=== PATIENT | female | born 1970 | race Caucasian/White ===

== ENCOUNTER 2020-01-21 09:18 | Outpatient (REF) | payer OTHER, SELFPAY ==
--- NOTE | 2020-01-21 09:25 | CT_ITS ---
EXAMINATION: CT HEAD WITHOUT CONTRAST CLINICAL INFORMATION: Headache. COMPARISON: None TECHNIQUE: Contiguous axial imaging was performed from the skull base to vertex without intravenous administration of contrast. This CT examination was performed using dose optimization techniques as appropriate, variously including the following: *Automated exposure control *Adjustment of mA and/or kV according to patient size (this includes techniques or standardized protocols for targeted exams where dose is matched to indication/reason for exam; i.e. extremities or head) *Use of iterative reconstruction technique DLP: 738 mGy-cm FINDINGS: There is no evidence of acute intracranial hemorrhage or territorial infarction. No abnormal mass effect or midline shift is seen. Duck[place] to white matter differentiation is well preserved. No extra-axial fluid collections are identified. The ventricles are normal in size. There is no abnormal attenuation within the brain parenchyma. The osseous structures and soft tissues are normal. The mastoid air cells and visualized portions of the paranasal sinuses are well aerated. IMPRESSION: No acute intracranial process seen.
== END 2020-01-21 09:19 | disposition home or self-care (01) ==
LOC: HO.CT 09:18
PROVIDERS: Visit Provider Psychiatry & Neurology Neurology
DX: R51.9 Headache, unspecified (principal)
CPT/HCPCS: 70450

== ENCOUNTER 2020-03-24 12:57 | Inpatient (IN) | payer OTHER, SELFPAY ==
[2020-03-24 13:10] VITALS: BP 128/91; PULSE 68; RESP 16; TEMP 37.2; O2SAT 97; BMI 39.1
[2020-03-24 14:54] LABS: MANUAL DIFF FLAG NO
[2020-03-24 15:03] LABS: Basophils Percent Auto 0.3 % (0-2); Eosinophils Absolute Auto 0.1 X10*3/uL (0.0-0.4); Eosinophils Percent Auto 1.2 % (0-4); Imm Gran Abs Auto 0.03 X10*3/uL (0.00-0.03); Imm Gran Pct Auto 0.4 % (0.0-0.4); Lymphocytes Absolute Auto 1.4 X10*3/uL (1.2-4.9); Mean Corpuscular HGB Conc 32.3 g/dl (31.0-35.0); Mean Corpuscular Hemoglobin 29.2 pg (27.0-33.0); Mean Corpuscular Volume 90.4 fL (80-98); Monocytes Absolute Auto 0.6 X10*3/uL (0.1-1.2); Monocytes Percent Auto 7.4 % (2-11); Neutrophils Absolute Auto 5.6 X10*3/uL (2.0-8.3); Neutrophils Percent Auto 72.7 % (45-73); Platelet Count 96 X10*3/uL (160-400); Red Blood Count 3.43 X10*6/uL (4.20-5.50); Red Cell Distribution Width 23.5 % (11.0-16.0); White Blood Count 7.7 X10*3/uL (4.8-10.8)
--- NOTE | 2020-03-24 15:09 | ED_ITS ---
HPI - Nausea/Vomiting/Diarrhea General Chief complaint: Nausea/Vomiting/Diarrhea Stated complaint: numbness and tingling Time Seen by Provider: 03/24/20 14:16 Source: patient Mode of arrival: ambulatory Limitations: no limitations History of Present Illness HPI Narrative: 49 y/o female with history of gastric bypass, small bowel resection resulting in short gut syndrome, hx recent C diff with significant metabolic derangements requiring ICU level of care at [facility] in December presents with watery, yellow diarrhea for the last 3 days along with tingling in all of her extremities. She feels that it is similar to her last presentation but not as severe as last time. No fever, chills. Vomiting yesterday but not today. She completed course of PO Vanco upon d/c. No recent oral antibiotic use. Reports mild diffuse abdominal pain. MD elicited complaint: diarrhea Pertinent past history: other (C diff) Onset (ago): day(s) (3) Description of vomiting: food contents Description of diarrhea: mucus, watery and loose Associated nausea: Yes Associated abdominal pain: Yes Location of pain: diffuse Pain consistency: intermittent Severity: moderate Quality: cramping Exacerbating factors: none Relieving factors: none Associated symptoms: loss of appetite, nausea/vomiting, weakness and numbness Related Data Previous Rx's Medication Instructions Recorded metoprolol tartrate 25 mg tablet 12.5 mg PO BID #60 tab 02/23/20 calcium carbonate 200 mg calcium 200 mg PO BID #30 tab 03/08/20 (500 mg) chewable tablet Allergies Allergy/AdvReac Type Severity Reaction Status Date / Time Flexeril Allergy Unknown anxious Verified 03/24/20 13:13 Latex Allergy Unknown skin Verified 03/24/20 13:13 bubbles prednisone [PREDNISONE] Allergy Unknown Angioedema Verified 03/24/20 13:13 Review of Systems Review of Systems: Constitutional: No Fever, No Chills ENT/Mouth: No sore throat, No Rhinorrhea, No Swallowing Difficulty Eyes: No Eye Pain, No Swelling, No Redness Cardiovascular: No Chest Pain, No SOB, No Orthopnea, No Edema Respiratory: No Cough, No Sputum, No Wheezing, No dyspnea Gastrointestinal: + Nausea, + Vomiting, + Diarrhea, + abdominal Pain, No Hematochezia, No Melena Genitourinary: No Dysuria, No Urinary Frequency, No Hematuria Musculoskeletal: No joint pain, + Myalgias Skin: No Skin Lesions, No rash Neuro: + Weakness, + Numbness, No Dizziness, No Headache Psych: No Anxiety/Panic, No Depression Heme/Lymph: No Bruising, No Lymphadenopathy Endocrine: No Polyuria, No Polydipsia Gastrointestinal: Gastrointestinal: Reports nausea PMFSH Past Medical History Attestation statement: The following information was validated with the patient. Medical History Adrenal gland disease Anxiety and depression Asthma Clostridioides difficile diarrhea Foreign body Heart murmur Hypertension Knee pain Narcolepsy Ventral hernia Surgical History History of intestinal surgery Family History Family History (Updated 03/03/20 @ 11:24 by Mariel White RMMiguel, [employer]) Father Unknown family medical history Mother Emphysema, unspecified Son No problems noted. Social History Social History Alcohol intake: current Alcohol intake frequency: holidays/special occasions only Alcohol type: wine Smoking Status: Never smoker Smoked in Last 30 Days: No Use of substances other than those prescribed or required for medical reasons: No Advance Directives: No Advance Directives Information Provided: No Physical Exam Vital Signs: Vital Signs: Last Vital Signs Temp 98.9 F 03/24/20 15:16 Pulse 72 03/24/20 15:16 Resp 16 03/24/20 15:16 BP 130/90 H 03/24/20 15:16 Pulse Ox 97 03/24/20 15:16 Body Mass Index 39.1 Appearance: Alert. Oriented X3. No acute distress. Eyes: Pupils equal, round and reactive to light. ENT: Pharynx normal. Neck: Normal inspection. Neck supple. CVS: Normal heart rate and rhythm. Pulses normal. Respiratory: No respiratory distress. Breath sounds normal. Abdomen: Obese, Soft with mild idffuse tenderness. +BS x4 Skin: Skin warm and dry. Normal skin color. Normal skin turgor. Erythematous flakey rash around umbilicus Extremities: No lower extremity edema. Neuro: Oriented X 3. No motor deficit. No sensory deficit. Course Course Course Narrative: 49 y/o with history of C. diff presenting with foul smelling diarrhea and tingling. Concern for electrolyte derrangements and dehydration. Will give IVF, check lytes, EKG and C diff PCR. Reevaluation(s) Reevaluation #1: 3:45 pm - Critically low potassium 1.9 and low mag 1.3. Aggressive oral and IV replacements ordered. EKG still pending. Will require hundreds of mEq's of KCl and admisison to the hospital. Reevaluation #2: 16:11 - TT hospitalist about admission, he is recommending PO/IV replacement with repeat chemistry in 1 hour then will admit. Poor IV access at this time. US being attempted at this time. MDM - Nausea/Vomiting/Diarrhea Differential Diagnosis Differential diagnosis: Likely traveler's diarrhea, food poisoning, gastroenteritis, clostridium difficile infection, drug-induced nausea and vomiting and dehydration Lab Data Attestation: I reviewed the patient's lab results. Result diagrams: 03/24/20 14:42 03/24/20 14:42 Labs: Lab Results 03/24/20 03/24/20 03/24/20 Range/Units 14:42 14:42 14:42 WBC 7.7 (4.8-10.8) X10*3/uL RBC 3.43 L (4.20-5.50) X10*6/uL Hgb 10.0 L (12.0-16.0) g/dl Hct 31.0 L (37-47) % MCV 90.4 (80-98) fL MCH 29.2 (27.0-33.0) pg MCHC 32.3 (31.0-35.0) g/dl RDW 23.5 H (11.0-16.0) % Plt Count 96 L (160-400) X10*3/uL MPV 11.0 (9.4-12.3) fL Immature Gran % (Auto) 0.4 (0.0-0.4) % Neut % (Auto) 72.7 (45-73) % Lymph % (Auto) 18.0 L (20-40) % [place] % (Auto) 7.4 (2-11) % Eos % (Auto) 1.2 (0-4) % Baso % (Auto) 0.3 (0-2) % Lymph # (Auto) 1.4 (1.2-4.9) X10*3/uL [place] # (Auto) 0.6 (0.1-1.2) X10*3/uL Eos # (Auto) 0.1 (0.0-0.4) X10*3/uL Baso # (Auto) 0.0 (0.0-0.2) X10*3/uL Abs Immat Gran (auto) 0.03 (0.00-0.03) X10*3/uL Absolute Neuts (auto) 5.6 (2.0-8.3) X10*3/uL Absolute Nucleated RBC 0.000 (0.0-0.012) X10*3/uL Nucleated RBC % (auto) 0.0 (0.0-0.2) /100WBC Sodium 141 (135-145) mmol/L Potassium 1.9 L* (3.3-5.1) mmol/l Chloride 93 L (96-108) mmol/L Carbon Dioxide 38 H (22-29) mmol/L Anion Gap 12 (12-20) BUN 4 L (9-16) mg/dL Creatinine 0.63 (0.5-1.4) mg/dL Estim Creat Clear Calc 137.3 Estimated GFR > 60 Random Glucose 98 (60-115) mg/dL Lactic Acid 1.3 (0.5-2.0) mmol/L Calcium 6.7 L (8.4-10.2) mg/dL Magnesium 1.3 L* (1.6-2.6) mg/dL Total Bilirubin 0.7 (0.0-1.0) mg/dL Direct Bilirubin 0.5 (0.0-0.5) mg/dL AST 48 H (5-31) U/L ALT 20 (0-31) U/L Alkaline Phosphatase 132 H (39-117) U/L Total Protein 5.8 L (6.5-8.0) g/dL Albumin 2.8 L (3.5-5.0) g/dL Coronavirus (PCR) (Negative) Influenza Type A (PCR) (Negative) Influenza Type B (PCR) (Negative) RSV RNA Qual (PCR) (Negative) 03/24/20 03/24/20 Range/Units 14:42 14:42 WBC (4.8-10.8) X10*3/uL RBC (4.20-5.50) X10*6/uL Hgb (12.0-16.0) g/dl Hct (37-47) % MCV (80-98) fL MCH (27.0-33.0) pg MCHC (31.0-35.0) g/dl RDW (11.0-16.0) % Plt Count (160-400) X10*3/uL MPV (9.4-12.3) fL Immature Gran % (Auto) (0.0-0.4) % Neut % (Auto) (45-73) % Lymph % (Auto) (20-40) % [place] % (Auto) (2-11) % Eos % (Auto) (0-4) % Baso % (Auto) (0-2) % Lymph # (Auto) (1.2-4.9) X10*3/uL [place] # (Auto) (0.1-1.2) X10*3/uL Eos # (Auto) (0.0-0.4) X10*3/uL Baso # (Auto) (0.0-0.2) X10*3/uL Abs Immat Gran (auto) (0.00-0.03) X10*3/uL Absolute Neuts (auto) (2.0-8.3) X10*3/uL Absolute Nucleated RBC (0.0-0.012) X10*3/uL Nucleated RBC % (auto) (0.0-0.2) /100WBC Sodium (135-145) mmol/L Potassium (3.3-5.1) mmol/l Chloride (96-108) mmol/L Carbon Dioxide (22-29) mmol/L Anion Gap (12-20) BUN (9-16) mg/dL Creatinine (0.5-1.4) mg/dL Estim Creat Clear Calc Estimated GFR Random Glucose (60-115) mg/dL Lactic Acid (0.5-2.0) mmol/L Calcium Cancelled (8.4-10.2) mg/dL Magnesium (1.6-2.6) mg/dL Total Bilirubin (0.0-1.0) mg/dL Direct Bilirubin (0.0-0.5) mg/dL AST (5-31) U/L ALT (0-31) U/L Alkaline Phosphatase (39-117) U/L Total Protein (6.5-8.0) g/dL Albumin (3.5-5.0) g/dL Coronavirus (PCR) NEGATIVE (Negative) Influenza Type A (PCR) NEGATIVE (Negative) Influenza Type B (PCR) NEGATIVE (Negative) RSV RNA Qual (PCR) NEGATIVE (Negative) ECG Data Attestation: I personally reviewed and interpreted this ECG as follows: ECG interpretation date: 03/24/20 ECG interpretation time: 16:25 Interpretation: normal sinus rhythm, HR 70 bpm, prolonged QTc 533 ms, normal NV interval, no U waves appreciated Critical Care Time Critical Care Time Critical Care Time: Yes Total Critical Care Time: 35 Attestation: I attest to this time being spent with this patient reviewing labs and history, having a critically low potassium. Requiring continuous hemodynamic monitoring and frequent bedside reassessments. Discharge Plan Discharge Clinical Impression: Acute hypokalemia, Hypomagnesemia Diarrhea Qualifiers: Diarrhea type: presumed infectious Qualified Code(s): R19.7 - Diarrhea, unspecified Patient Disposition: Admitted As Inpatient
[2020-03-24] MEDS: 0.9 % Sodium Chloride 1,000 ML 999 ML IVCONT (15:12)
[2020-03-24 15:16] VITALS: BP 130/90; PULSE 72; RESP 16; TEMP 37.2; O2SAT 97
[2020-03-24 15:20] LABS: Lactic Acid 1.3 mmol/L (0.5-2.0)
[2020-03-24 15:47] LABS: Alanine Aminotransferase 20 U/L (0-31); Albumin Level 2.8 g/dL (3.5-5.0); Alkaline Phosphatase 132 U/L (39-117); Anion Gap 12 (12-20); Aspartate Amino Transferase 48 U/L (5-31); Bilirubin Direct 0.5 mg/dL (0.0-0.5); Bilirubin Total 0.7 mg/dL (0.0-1.0); Blood Urea Nitrogen 4 mg/dL (9-16); Calcium 6.7 mg/dL (8.4-10.2); Carbon Dioxide 38 mmol/L (22-29); Chloride 93 mmol/L (96-108); Creatinine Clr Calc Pharmacy 137.3; Estimated Glomerular Filt Rate > 60; Glucose Random 98 mg/dL (60-115); Potassium 1.9 mmol/l (3.3-5.1); Sodium 141 mmol/L (135-145); Total Protein 5.8 g/dL (6.5-8.0)
[2020-03-24 15:48] LABS: Magnesium 1.3 mg/dL (1.6-2.6)
--- NOTE | 2020-03-24 15:49 | ECG_ITS ---
Test Reason : DIZZ Blood Pressure : / mmHG Vent. Rate : 070 BPM Atrial Rate : 070 BPM P-R Int : 142 ms QRS Dur : 092 ms QT Int : 494 ms P-R-T Axes : 055 050 075 degrees QTc Int : 533 ms Normal sinus rhythm ST & T wave abnormality, consider anterior ischemia Abnormal ECG When compared with ECG of 01-NOV-2016 11:57, ST now depressed in Anterior leads Nonspecific T wave abnormality now evident in Inferior leads T wave inversion now evident in Anterior leads QT has lengthened Referred By: Samantha Roblero Electronically Signed By:JEANINE GARCÍA MD
[2020-03-24 15:54] LABS: Influenza A PCR NEGATIVE (Negative); Influenza B PCR NEGATIVE (Negative); Resp Syncy Virus RNA Qual PCR NEGATIVE (Negative); SARS COV2 PCR INHOUSE NEGATIVE (Negative)
[2020-03-24] MEDS: KCl 40 mEq in 0.9 % Sodium Chl 40 MEQ/1,000 ML IV.SOLN 250 MEQ IVCONT (16:07)
[2020-03-24] MEDS: Potassium Chloride ER 20 MEQ TAB.ER.PRT 60 MEQ PO ×2 (16:08→23:25)
[2020-03-24 17:07] VITALS: BP 158/86; PULSE 73; RESP 16; O2SAT 99
--- NOTE | 2020-03-24 18:15 | PC.NURSE ---
pt has IV established in left AC, potassium running. She needs second IV for Magnesium, multiple attempts with no sucess. Awaiting provider to insert EJ
[2020-03-24 18:17] LABS: INTERNATIONAL NORM RATIO 1.1 (0.9-1.1); Prothrombin Time 12.5 SEC (10.8-13.0)
[2020-03-24 18:28] LABS: Blood Urea Nitrogen 4 mg/dL (9-16); Creatinine Clr Calc Pharmacy 146.5; Estimated Glomerular Filt Rate > 60; Glucose Random 86 mg/dL (60-115)
--- NOTE | 2020-03-24 18:32 | P.HPHOSP_ITS ---
History of Present Illness Date of Service: 03/24/20 Chief Complaint: Vomiting, diarrhea, numbness and weakness A 49 years old lady with PMH X of gastric bypass, small-bowel resection, recent C diff colitis, HTN, adrenal gland problem among others who presents to the hospital with complaint of weakness and numbness in her extremities after having episodes of nausea and vomiting for the last 3 days. The patient was recently admitted to [facility] with C diff colitis requiring ICU admission. The patient has recovered and has been around her normal self for the last 3 weeks and to the last 3 days when she felt nauseated and started to vomit 4 to 5 times a day along with diarrhea of watery 4 to 5 times a day with no abdominal pain, fever, chills or urinary symptoms. Today she decided to come to the hospital as the weakness and numbness gets worse. In the emergency she was found to have significantly low potassium and magnesium. Admitted for further evaluation and treatment. Review of Systems Review of Systems: No fever, chills , reports significant weakness No chest pain, palpitation No shortness of breath or coughing No abdominal pain, reporting vomiting and diarrhea up to 4 times a day No urinary symptoms No any rash or wounds PMFSH Medical History Adrenal gland disease Anxiety and depression Asthma Clostridioides difficile diarrhea Foreign body Heart murmur Hypertension Knee pain Narcolepsy Ventral hernia Family History Father Unknown family medical history Mother Emphysema, unspecified Son No problems noted. Surgical History History of intestinal surgery Social History Household Members: Significant Other and Friend(s) Housing: Condominium Do you presently have visiting nurse or other home services: No Alcohol intake: current Alcohol intake frequency: holidays/special occasions only Alcohol type: wine Smoking Status: Never smoker Smoked in Last 30 Days: No Use of substances other than those prescribed or required for medical reasons: No Currently Displaying Signs/Symptoms of Drug Intoxication Withdrawal: No Advance Directives: No Advance Directives Information Provided: No Do you have thoughts of harming others: None Do you have a plan to hurt others: No Plan Recently lost weight without trying: No service: No Current occupational status: disabled Meds Allergies Allergy/AdvReac Type Severity Reaction Status Date / Time Flexeril Allergy Unknown anxious Verified 03/24/20 13:13 Latex Allergy Unknown skin Verified 03/24/20 13:13 bubbles prednisone [PREDNISONE] Allergy Unknown Angioedema Verified 03/24/20 13:13 Home Medications Medication Instructions Recorded Confirmed Type acyclovir 200 mg PO TID PRN 03/24/20 03/24/20 History bupropion HCl 150 mg PO QAM 03/24/20 03/24/20 History bupropion HCl 300 mg PO QAM 03/24/20 03/24/20 History clonidine HCl 0.1 mg PO TID PRN 03/24/20 03/24/20 History ergocalciferol (vitamin D2) 1,250 mcg PO MO@0900 03/24/20 03/24/20 History [Vitamin D2] hydroxyzine HCl 50 mg PO TID PRN 03/24/20 03/24/20 History lurasidone [Latuda] 60 mg PO DAILY 03/24/20 03/24/20 History ondansetron 4 mg PO DAILY PRN 03/24/20 03/24/20 History venlafaxine 75 mg PO DAILY 03/24/20 03/24/20 History venlafaxine 150 mg PO DAILY 03/24/20 03/24/20 History Physical Exam Vital Signs and Narrative: Vital Signs: Last Vital Signs Temp 98.9 F 03/24/20 15:16 Pulse 73 03/24/20 17:07 Resp 16 03/24/20 17:07 BP 158/86 H 03/24/20 17:07 Pulse Ox 99 03/24/20 17:07 Body Mass Index 39.1 Constitutional : Alert, oriented, not in distress Neck : Normal inspection, Supple Cardiovascular : RRR, S1 S2, no lower extremity edema Respiratory : Good bilateral air entry, no crackles, wheezes or rhonchi Gastrointestinal: soft, lax, Normal bowel sounds, Non tender Skin : Warm/Dry, No rash Neurological : Alert & oriented x3, No focal deficit Results Labs CBC and Chem 7: 03/25/20 05:33 03/25/20 05:32 Labs: Laboratory Results - last 24 hr 03/24/20 03/24/20 03/24/20 14:42 14:42 14:42 MCV 90.4 MCH 29.2 MCHC 32.3 RDW 23.5 H Plt Count 96 L MPV 11.0 Immature Gran % (Auto) 0.4 Neut % (Auto) 72.7 Lymph % (Auto) 18.0 L [place] % (Auto) 7.4 Eos % (Auto) 1.2 Baso % (Auto) 0.3 Lymph # (Auto) 1.4 [place] # (Auto) 0.6 Eos # (Auto) 0.1 Baso # (Auto) 0.0 Abs Immat Gran (auto) 0.03 Absolute Neuts (auto) 5.6 Absolute Nucleated RBC 0.000 Nucleated RBC % (auto) 0.0 Hold Blue Top Anion Gap 12 Estim Creat Clear Calc 137.3 Estimated GFR > 60 Random Glucose 98 Lactic Acid 1.3 Calcium 6.7 L Magnesium 1.3 L* Total Bilirubin 0.7 Direct Bilirubin 0.5 AST 48 H ALT 20 Alkaline Phosphatase 132 H Total Protein 5.8 L Albumin 2.8 L Coronavirus (PCR) Influenza Type A (PCR) Influenza Type B (PCR) RSV RNA Qual (PCR) 03/24/20 03/24/20 03/24/20 14:42 14:42 17:56 MCV MCH MCHC RDW Plt Count MPV Immature Gran % (Auto) Neut % (Auto) Lymph % (Auto) [place] % (Auto) Eos % (Auto) Baso % (Auto) Lymph # (Auto) [place] # (Auto) Eos # (Auto) Baso # (Auto) Abs Immat Gran (auto) Absolute Neuts (auto) Absolute Nucleated RBC Nucleated RBC % (auto) Hold Blue Top SEE NOTE Anion Gap Estim Creat Clear Calc Estimated GFR Random Glucose Lactic Acid Calcium Cancelled Magnesium Total Bilirubin Direct Bilirubin AST ALT Alkaline Phosphatase Total Protein Albumin Coronavirus (PCR) NEGATIVE Influenza Type A (PCR) NEGATIVE Influenza Type B (PCR) NEGATIVE RSV RNA Qual (PCR) NEGATIVE 03/24/20 17:56 MCV MCH MCHC RDW Plt Count MPV Immature Gran % (Auto) Neut % (Auto) Lymph % (Auto) [place] % (Auto) Eos % (Auto) Baso % (Auto) Lymph # (Auto) [place] # (Auto) Eos # (Auto) Baso # (Auto) Abs Immat Gran (auto) Absolute Neuts (auto) Absolute Nucleated RBC Nucleated RBC % (auto) Hold Blue Top Anion Gap Estim Creat Clear Calc 146.5 Estimated GFR > 60 Random Glucose 86 Lactic Acid Calcium Magnesium Total Bilirubin Direct Bilirubin AST ALT Alkaline Phosphatase Total Protein Albumin Coronavirus (PCR) Influenza Type A (PCR) Influenza Type B (PCR) RSV RNA Qual (PCR) Assessment and Plan (1) Numbness and tingling: Status: Acute (2) Acute hypokalemia: Status: Acute (3) Diarrhea: Qualifiers: Diarrhea type: presumed infectious Qualified Code(s): R19.7 - Diarrhea, unspecified Status: Acute (4) Hypomagnesemia: Status: Acute (5) Generalized weakness: Status: Acute A 49 years old lady with PMH X of gastric bypass, small-bowel resection, recent C diff colitis, HTN, adrenal gland problem among others who presents to the hospital with complaint of weakness and numbness in her extremities after having episodes of nausea and vomiting for the last 3 days. Generalized weakness Likely secondary to dehydration and electrolyte imbalance To correct potassium and magnesium Hypokalemia Potassium of 1.9 associated with symptoms Receiving replacement in the emergency, pending repeat labs Continue to give potassium supplement for now To check cortisol level, given history of adrenal disease this could be presentation of it Hypomagnesemia Like secondary to diarrhea and vomiting Replacement given the emergency Mild protein malnutrition Likely secondary to short gut syndrome To give supplement with food Acute on chronic anemia Blood level dropped to 10 from baseline of 12 No clear bleeding noticed The to check occult blood she might need further workup as outpatient DVT PPX SCDs for now
[2020-03-24] MEDS: LORazepam 1 MG TABLET PO (18:37)
[2020-03-24 18:44] LABS: Anion Gap 11 (12-20); Calcium 6.3 mg/dL (8.4-10.2); Carbon Dioxide 37 mmol/L (22-29); Chloride 97 mmol/L (96-108); Potassium 2.3 mmol/l (3.3-5.1); Sodium 143 mmol/L (135-145)
[2020-03-24] MEDS: Magnesium Sulfate/H2O 2 GM/50 ML PIGGYBACK IV ×2 (19:01→20:47)
[2020-03-24 20:00] VITALS: BP 144/80; PULSE 88; RESP 18; TEMP 36.6; O2SAT 94
[2020-03-24] MEDS: Potassium Chloride ER 20 MEQ TAB.ER.PRT 40 MEQ PO (20:47)
[2020-03-24 21:41] LABS: Glucose Urine UA NEG (NEG); Leukocyte Esterase Urine 2+ (NEG); Nitrite Urine NEG (NEG); PH 6.5 (5.0-8.0); Specific Gravity - Urine 1.015 (1.005-1.025); Urine Blood NEG (NEG); Urine Ketones NEG (NEG); Urine Protein NEG (NEG-TRACE)
[2020-03-24 21:47] LABS: OBS Int Ctl Valid YES; OBS1 NEG (NEG)
[2020-03-24 21:50] LABS: Appearance Urine CLEAR; Color Urine YELLOW
[2020-03-24 22:08] LABS: Amphetamine Screen Urine Not Detected (Not Detect); Barbiturates, Urine Not Detected (Not Detect); Benzodiazepines Screen Urine Not Detected (Not Detect); Cannabinoid Screen Urine Not Detected (Not Detect); Cocaine Screen Urine Not Detected (Not Detect); Opiate Screen Urine Not Detected (Not Detect); Phencyclidine Screen Urine Not Detected (Not Detect)
[2020-03-24 22:52] LABS: Bacteria Urine 2+ /LPF; Squamous Epithelial Cell Urine 1+ /LPF
[2020-03-24 23:10] LABS: CDIFF Ag Negative (Negative)
[2020-03-24 23:11] LABS: CDIFF Internal ctrl Dots and bkg OK (V); CDiff Toxin Negative (Negative)
[2020-03-25] VITALS (9 sets, daily range): BP systolic 123–158; BP diastolic 78–102; PULSE 69–81; RESP 16–19; TEMP 36.1–37.1; O2SAT 94–99
[2020-03-25 06:19] LABS: MANUAL DIFF FLAG NO
[2020-03-25 06:24] LABS: Basophils Percent Auto 0.4 % (0-2); Eosinophils Absolute Auto 0.1 X10*3/uL (0.0-0.4); Eosinophils Percent Auto 1.4 % (0-4); Hematocrit 29.1 % (37-47); Hemoglobin 9.1 g/dl (12.0-16.0); Imm Gran Abs Auto 0.01 X10*3/uL (0.00-0.03); Imm Gran Pct Auto 0.2 % (0.0-0.4); Lymphocytes Absolute Auto 1.1 X10*3/uL (1.2-4.9); Lymphocytes Percent Auto 20.6 % (20-40); Mean Corpuscular HGB Conc 31.3 g/dl (31.0-35.0); Mean Corpuscular Hemoglobin 28.5 pg (27.0-33.0); Mean Corpuscular Volume 91.2 fL (80-98); Mean Platelet Volume 10.9 fL (9.4-12.3); Monocytes Absolute Auto 0.5 X10*3/uL (0.1-1.2); Neutrophils Absolute Auto 3.8 X10*3/uL (2.0-8.3); Neutrophils Percent Auto 68.4 % (45-73); Platelet Count 82 X10*3/uL (160-400); Red Blood Count 3.19 X10*6/uL (4.20-5.50); Red Cell Distribution Width 23.4 % (11.0-16.0); White Blood Count 5.5 X10*3/uL (4.8-10.8)
[2020-03-25 07:33] LABS: Anion Gap 11 (12-20); Blood Urea Nitrogen 3 mg/dL (9-16); Calcium 6.4 mg/dL (8.4-10.2); Carbon Dioxide 32 mmol/L (22-29); Chloride 99 mmol/L (96-108); Creatinine Clr Calc Pharmacy 163.1; Estimated Glomerular Filt Rate > 60; Glucose Random 89 mg/dL (60-115); Potassium 2.4 mmol/l (3.3-5.1); Sodium 140 mmol/L (135-145)
[2020-03-25] MEDS: buPROPion HCl XL 300 MG TAB.ER.24H PO (09:38)
[2020-03-25] MEDS: Venlafaxine HCl ER 75 MG CAP.ER.24H PO (09:38)
[2020-03-25] MEDS: cloNIDine HCL 0.1 MG TABLET PO ×3 (09:38→22:25)
[2020-03-25] MEDS: Venlafaxine HCl ER 150 MG CAP.ER.24H PO (09:38)
[2020-03-25] MEDS: Metoprolol Tartrate 25 MG TABLET 12.5 MG PO ×2 (09:38→22:23)
[2020-03-25] MEDS: hydrOXYzine HCL 50 MG TABLET PO ×3 (09:38→22:24)
[2020-03-25] MEDS: buPROPion HCl XL 150 MG TAB.ER.24H PO (09:38)
[2020-03-25] MEDS: 0.9 % Sodium Chloride Flush 3 ML SYRINGE IVFLUSH ×2 (09:39→16:25)
[2020-03-25] MEDS: Potassium Chloride/H20 10 MEQ/100 ML PIGGYBACK 100 MEQ IV ×4 (09:39→13:57)
--- NOTE | 2020-03-25 09:52 | P.CNHO_ITS ---
Subjective - Subjective Chief complaint: Lower extremity weakness and numbness Consult date: 03/25/20 Requesting Physician: Dr. Solis Primary Care Provider: Chantale Chairez MD HPI - Consult Narrative Reason for consult: Anemia and thrombocytopenia Narrative: Ana Cross is a 49 year old female who has been admitted with symptoms of lower extremity numbness and weakness. She was admitted to [facility] in December with diarrhea and similar complaints of lower extremity weakness and inability to move. At that time she was admitted to the ICU with serious electrolyte disturbances, chiefly hypocalcemia and hypomagnesemia. This was attributed to diarrhea related to C diff colitis. She received and completed course of antibiotics, her diarrhea has since resolved. However in the last few days she developed recurrent symptoms of lower extremity weakness and had a few episodes of nausea and emesis that prompted her to come to the emergency department. She denies any fever or chills. She denies any previous complaints similar to this. She underwent gastric bypass surgery in 2005 at [facility]. A year o r 2 later she developed small bowel obstruction and underwent resection. She was told of anemia in the past related to iron deficiency but she does not recall receiving parenteral iron therapy. She has been taking multivitamin. She does not recall previous blood transfusion. Review of Systems - Constitutional Reports as per HPI, Reports no additional constitutional complaints - Cardiovascular Reports no additional cardiovascular complaints - Respiratory Reports no additional respiratory complaints - Gastrointestinal Reports no additional gastrointestinal complaints Oncology Screenings - ECOG Performance Status ECOG Performance Status: 2 [facility] Medical History: Medical History (Last Reviewed 03/24/20 @ 18:36 by Lorie Solis MD) Adrenal gland disease Anxiety and depression Asthma Clostridioides difficile diarrhea Foreign body Heart murmur Hypertension Knee pain Narcolepsy Ventral hernia Family History: Family History (Last Reviewed 03/24/20 @ 18:36 by Lorie Solis MD) Father Unknown family medical history Mother Emphysema, unspecified Son No problems noted. Surgical History: Surgical History (Last Reviewed 03/24/20 @ 18:36 by Lorie Solis MD) History of intestinal surgery Smoking status: Never smoker Home Medications and Allergies Current Medications: Current Medications Generic Name Dose Route Start Last Admin Trade Name Freq PRN Reason Stop Dose Admin Acetaminophen 650 mg 03/24/20 18:49 Acetaminophen 325 Mg Tablet PO Q6H PRN Pain, Mild (Pain Scale 1-3) Albuterol Sulfate 2 puff 03/25/20 08:51 Albuterol Sulfate 90 Mcg 8 Gm Inhaler INHALE Q4H PRN Shortness Of Breath Bupropion HCl 150 mg 03/25/20 09:00 03/25/20 09:38 Bupropion Hcl Xl 150 Mg Tab.Er.24h PO 150 mg DAILY [facility] Administration Bupropion HCl 300 mg 03/25/20 09:00 03/25/20 09:38 Bupropion Hcl Xl 300 Mg Tab.Er.24h PO 300 mg DAILY [facility] Administration Calcium Carbonate 500 mg 03/25/20 09:00 03/25/20 09:38 Calcium Carbonate 500 Mg Tablet PO 500 mg BID [facility] Administration Clonidine HCl 0.1 mg 03/25/20 09:00 03/25/20 09:38 Clonidine Hcl 0.1 Mg Tablet PO 0.1 mg TID [facility] Administration Protocol Ergocalciferol 1,250 mcg 03/29/20 09:00 Ergocalciferol (Vitamin D2) 1,250 Mcg Capsule PO MO@0900 [facility] Hydroxyzine HCl 50 mg 03/25/20 09:00 03/25/20 09:38 Hydroxyzine Hcl 50 Mg Tablet PO 50 mg TID [facility] Administration Potassium Chloride 10 meq in 100 mls @ 100 mls/hr 03/25/20 09:00 03/25/20 09:39 IV 03/25/20 12:59 100 mls/hr Q1H [facility] Administration Lurasidone HCl 60 mg 03/25/20 09:00 Lurasidone Hcl 20 Mg Tablet PO DAILY [facility] Metoprolol Tartrate 12.5 mg 03/25/20 09:00 03/25/20 09:38 Metoprolol Tartrate 25 Mg Tablet PO 12.5 mg BID [facility] Administration Protocol Ondansetron HCl 4 mg 03/24/20 18:49 Ondansetron Hcl 4 Mg/2 Ml Vial IVPUSH Q8H PRN Nausea and Vomiting Potassium Chloride 60 meq 03/25/20 09:00 03/25/20 09:38 Potassium Chloride Er 10 Meq Capsule.Er PO 03/25/20 21:01 60 meq TID [facility] Administration Sodium Chloride 3 ml 03/25/20 00:00 03/25/20 09:39 0.9 % Sodium Chloride Flush 3 Ml Syringe IVFLUSH 3 ml QSHIFT [facility] Administration Venlafaxine HCl 75 mg 03/25/20 09:00 03/25/20 09:38 Venlafaxine Hcl Er 75 Mg Cap.Er.24h PO 75 mg DAILY [facility] Administration Venlafaxine HCl 150 mg 03/25/20 09:00 03/25/20 09:38 Venlafaxine Hcl Er 150 Mg Cap.Er.24h PO 150 mg DAILY [facility] Administration Home Medications Medication Instructions Recorded Confirmed Type acyclovir 200 mg PO TID PRN 03/24/20 03/24/20 History bupropion HCl 150 mg PO QAM 03/24/20 03/24/20 History bupropion HCl 300 mg PO QAM 03/24/20 03/24/20 History clonidine HCl 0.1 mg PO TID PRN 03/24/20 03/24/20 History ergocalciferol (vitamin D2) 1,250 mcg PO MO@0900 03/24/20 03/24/20 History [Vitamin D2] hydroxyzine HCl 50 mg PO TID PRN 03/24/20 03/24/20 History lurasidone [Latuda] 60 mg PO DAILY 03/24/20 03/24/20 History ondansetron 4 mg PO DAILY PRN 03/24/20 03/24/20 History venlafaxine 75 mg PO DAILY 03/24/20 03/24/20 History venlafaxine 150 mg PO DAILY 03/24/20 03/24/20 History Allergies Allergy/AdvReac Type Severity Reaction Status Date / Time Flexeril Allergy Unknown anxious Verified 03/24/20 13:13 Latex Allergy Unknown skin Verified 03/24/20 13:13 bubbles prednisone [PREDNISONE] Allergy Unknown Angioedema Verified 03/24/20 13:13 Physical Exam Vital signs: Vital Signs Temp 97.6 F 03/25/20 07:10 Pulse 81 03/25/20 07:10 Resp 19 03/25/20 07:10 BP 146/94 H 03/25/20 07:10 Pulse Ox 94 03/25/20 07:10 Intake & Output 03/24/20 03/25/20 03/25/20 18:59 06:59 18:59 Intake Total 999 112 / 2119 100 / 100 Balance 999 [id number] 100 / 100 Intake: Intake, Oral Amount 120 / 120 Intake, IV Amount 1000 / 2000 1000 / 2000 100 / 100 Magnesium Sulfate/H2O 2 gm In 100 / 100 50 ml @ 50 mls/hr IV ONCE ONE Rx#:[id number] 0.9 % Sodium Chloride 1,000 ml 1000 / 1000 @ 999 mls/hr IVCONT .Q1H1M [facility] Rx#:[id number] KCl 40 mEq in 0.9 % Sodium Chl 1000 / 1000 40 meq In 1,000 ml @ 250 mls/hr IVCONT .Q4H [facility] Rx#:[id number] Other: Number of Unmeasured Voids 2 Urine Bathroom Urine Color Yellow Weight 113.398 kg Weight 113.398 kg - Constitutional Present: no acute distress - Routine HEENT Exam Head: Present: normal inspection Eye: Present: EOMI, conjunctivae pale, PERRL - Routine Neck Exam Present: supple. Absent: lymphadenopathy - Routine Respiratory Exam Present: CTAB - Routine Cardiovascular Exam Cardiovascular: Present: RRR, S1, S2 - Routine Abdominal Exam Present: soft Hem/Onc Consult Result - Labs CBC & Chem 7: 03/25/20 05:33 03/25/20 05:32 Labs: Short CBC 03/24/20 03/25/20 Range/Units 14:42 05:33 WBC 7.7 5.5 (4.8-10.8) X10*3/uL Hgb 10.0 L 9.1 L (12.0-16.0) g/dl Hct 31.0 L 29.1 L (37-47) % Plt Count 96 L 82 L (160-400) X10*3/uL BMP 03/24/20 03/24/20 03/24/20 14:42 14:42 17:56 Sodium 141 143 Potassium 1.9 L* 2.3 L* D Chloride 93 L 97 Carbon Dioxide 38 H 37 H BUN 4 L 4 L Creatinine 0.63 0.59 Calcium 6.7 L Cancelled 6.3 L 03/25/20 05:32 Sodium 140 Potassium 2.4 L* Chloride 99 Carbon Dioxide 32 H BUN 3 L Creatinine 0.53 Calcium 6.4 L Liver Function 03/24/20 Range/Units 14:42 Total Bilirubin 0.7 (0.0-1.0) mg/dL Direct Bilirubin 0.5 (0.0-0.5) mg/dL AST 48 H (5-31) U/L ALT 20 (0-31) U/L Alkaline Phosphatase 132 H (39-117) U/L Albumin 2.8 L (3.5-5.0) g/dL Urine 03/24/20 Range/Units 21:28 Urine Color YELLOW Urine Appearance CLEAR Urine pH 6.5 (5.0-8.0) Ur Specific Gepp 1.015 (1.005-1.025) Urine Protein NEG (NEG-TRACE) MG/DL Urine Glucose (UA) NEG (NEG) MG/DL Assessment and Plan (1) Anemia Status: Acute Qualifiers: Anemia type: folate deficiency 1. This is a 49-year-old woman with recurrent symptoms of hypocalcemia/hypokalemia admitted to the hospital with lower extremity weakness. She was noted to have worsening anemia and thrombocytopenia. This is multif actorial. Review of records from [facility] reveals that patient was anemic and thrombocytopenic while stent [facility]. Her hemoglobin was in the same range and platelets were in the low 100s. She has iron deficiency as well as vitamin B12 and folic acid deficiency. Her recent infection and previous gastric bypass surgery would also impair absorption. This no evidence of hemolysis, renal dysfunction or liver dysfunction causing her cytopenias. No coagulopathy to suggest DIC. I would recommend treating her with parenteral iron therapy, Ferrlecit 125 mg IV daily x5. Start vitamin B12 1000 microg intramuscular daily while admitted and then Q monthly. Folic acid 1 mg daily. I thank you for this referral.
[2020-03-25 10:11] LABS: Immature Retic Fraction 25.2 % (3.0-15.9); Retic HGB Equivalent 29.9 pg (30.0-35.0); Reticulocyte Percent 1.2 % (0.5-1.8); Reticulocytes Absolute 0.044 X10*6/uL (0.026-0.095)
[2020-03-25] MEDS: Lurasidone HCl 20 MG TABLET 60 MG PO (10:18)
[2020-03-25 10:25] LABS: Iron 33 mcg/dL (30-160); Lactate Dehydrogenase 279 U/L (122-220); Percent Iron Saturation 11 % (15-50); Total Iron Binding Capacity 309 mcg/dL (228-428); Unsaturated Iron Binding 276 ug/dL
[2020-03-25 10:56] LABS: Folate 3.1 ng/mL (> or = 4.0); Vitamin B12 250 pg/mL (200-900)
--- NOTE | 2020-03-25 13:14 | MHC.CM.PN ---
IMM 03/25/2020 FEMALE 49 DX numbness hypo K n/v. She lives with BF and a friend. She requires assististance from a INSURANCE C[employer]ER ; Which is provided by [facility]. She states that she is steady on her feet, requires no AD. DP is to resume services for INSURANCE CODER thru [facility]. She will arrange for transport at [place]. CM will follow.
--- NOTE | 2020-03-25 15:03 | P.PNIM_ITS ---
Subjective Subjective Date of Service: 03/25/20 Interval History: the patient was seen and evaluated this morning Laying in bed, feels comfortable but reports numbness and generalized weakness Denies any fever, chills or shortness of breath No reported other overnight events. Systemic review: Reports muscle weakness and lethargy No fever, chills or weakness No chest pain, palpitation No shortness of breath or coughing No abdominal pain, nausea or vomiting No urinary symptoms No any rash or wounds Physical Exam Vital Signs: Vital Signs: Last Vital Signs Temp 96.9 F 03/25/20 11:44 Pulse 74 03/25/20 11:44 Resp 18 03/25/20 11:44 BP 123/80 03/25/20 11:44 Pulse Ox 98 03/25/20 11:44 Body Mass Index 39.1 Constitutional : Alert, oriented, not in distress Neck : Normal inspection, Supple Cardiovascular : RRR, S1 S2, no lower extremity edema Respiratory : Good bilateral air entry, no crackles, wheezes or rhonchi Gastrointestinal: soft, lax, Normal bowel sounds, Non tender Skin : Warm/Dry, No rash Neurological : Alert & oriented x3, No focal deficit Objective Data Current Medications Generic Name Dose Route Start Last Admin Trade Name Freq PRN Reason Stop Dose Admin Acetaminophen 650 mg 03/24/20 18:49 Acetaminophen 325 Mg Tablet PO Q6H PRN Pain, Mild (Pain Scale 1-3) Albuterol Sulfate 2 puff 03/25/20 08:51 Albuterol Sulfate 90 Mcg 8 Gm Inhaler INHALE Q4H PRN Shortness Of Breath Bupropion HCl 150 mg 03/25/20 09:00 03/25/20 09:38 Bupropion Hcl Xl 150 Mg Tab.Er.24h PO 150 mg DAILY [facility] Administration Bupropion HCl 300 mg 03/25/20 09:00 03/25/20 09:38 Bupropion Hcl Xl 300 Mg Tab.Er.24h PO 300 mg DAILY [facility] Administration Calcium Carbonate 500 mg 03/25/20 09:00 03/25/20 09:38 Calcium Carbonate 500 Mg Tablet PO 500 mg BID [facility] Administration Clonidine HCl 0.1 mg 03/25/20 09:00 03/25/20 13:58 Clonidine Hcl 0.1 Mg Tablet PO 0.1 mg TID [facility]IHA Administration Protocol Cyanocobalamin 1,000 mcg 03/25/20 15:00 Cyanocobalamin (Vitamin B-12) 1,000 Mcg/Ml Vial IM DAILY [facility] Ergocalciferol 1,250 mcg 03/29/20 09:00 Ergocalciferol (Vitamin D2) 1,250 Mcg Capsule PO MO@0900 [facility] Folic Acid 1 mg 03/25/20 14:55 Folic Acid 1 Mg/0.2 Ml Syringe IVPUSH DAILY [facility] Hydroxyzine HCl 50 mg 03/25/20 09:00 03/25/20 13:58 Hydroxyzine Hcl 50 Mg Tablet PO 50 mg TID [facility] Administration Ferric Sodium Gluconate 110 mls @ 100 mls/hr 03/25/20 15:00 Complex 125 mg/ Sodium IV 03/27/20 10:05 Chloride DAILY [facility] Lurasidone HCl 60 mg 03/25/20 09:00 03/25/20 10:18 Lurasidone Hcl 20 Mg Tablet PO 60 mg DAILY [facility] Administration Magnesium Oxide 400 mg 03/25/20 17:30 Magnesium Oxide 400 Mg Tablet PO BIDPC [facility] Metoprolol Tartrate 12.5 mg 03/25/20 09:00 03/25/20 09:38 Metoprolol Tartrate 25 Mg Tablet PO 12.5 mg BID [facility] Administration Protocol Ondansetron HCl 4 mg 03/24/20 18:49 Ondansetron Hcl 4 Mg/2 Ml Vial IVPUSH Q8H PRN Nausea and Vomiting Potassium Chloride 60 meq 03/25/20 09:00 03/25/20 13:58 Potassium Chloride Er 10 Meq Capsule.Er PO 03/25/20 21:01 60 meq TID [facility] Administration Sodium Chloride 3 ml 03/25/20 00:00 03/25/20 09:39 0.9 % Sodium Chloride Flush 3 Ml Syringe IVFLUSH 3 ml QSHIFT [facility] Administration Venlafaxine HCl 75 mg 03/25/20 09:00 03/25/20 09:38 Venlafaxine Hcl Er 75 Mg Cap.Er.24h PO 75 mg DAILY [facility] Administration Venlafaxine HCl 150 mg 03/25/20 09:00 03/25/20 09:38 Venlafaxine Hcl Er 150 Mg Cap.Er.24h PO 150 mg DAILY [facility] Administration Labs CBC & Chem 7: 03/25/20 05:33 03/25/20 05:32 Microbiology Microbiology Results: Microbiology 03/24/20 21:30 Urine clean catch - Clean Catch Midstream Urine Culture - Preliminary Gram negative ihsan Assessment and Plan (1) Numbness and tingling: Status: Acute (2) Acute hypokalemia: Status: Acute (3) Diarrhea: Status: Acute (4) Hypomagnesemia: Status: Acute (5) Generalized weakness: Status: Acute Assessment and Plan: A 49 years old lady with PMH X of gastric bypass, small-bowel resection, recent C diff colitis, HTN, adrenal gland problem among others who presents to the hospital with complaint of weakness and numbness in her extremities after having episodes of nausea and vomiting for the last 3 days. Generalized weakness Likely secondary to dehydration and electrolyte imbalance To correct potassium and magnesium To check the need for PT before discharge Hypokalemia Potassium of the improved to 2.3 this morning after receiving large amount of supplement To use p.o. supplement To use IV supplement Repeat BMP To check cortisol level, patient not aware of any adrenal disease Hypomagnesemia To recheck levels Like secondary to diarrhea and vomiting Start p.o. supplement Moderate protein malnutrition Likely secondary to short gut syndrome To give supplement with food Acute on chronic anemia Thrombocytopenia Blood level dropped to 10 from baseline of 12 Likely a result of malnutrition, iron folate and B12 deficiencies No clear bleeding noticed The to check occult blood Hematology input appreciated, to give replacement Start iron, folate and B12 supplement Hypocalcemia Corrected calcium of 7.6 Increase calcium supplement to 1 g b.i.d. To get Nephrology evaluation DVT PPX SCDs for now (6) Anemia: Status: Acute (7) Thrombocytopenia: Status: Acute (8) Malabsorption: Status: Acute (9) Moderate protein malnutrition: Status: Acute
[2020-03-25 16:01] LABS: Magnesium 1.8 mg/dL (1.6-2.6)
[2020-03-25 16:10] LABS: Anion Gap 10 (12-20); Blood Urea Nitrogen 2 mg/dL (9-16); Calcium 6.9 mg/dL (8.4-10.2); Carbon Dioxide 35 mmol/L (22-29); Chloride 98 mmol/L (96-108); Creatinine Clr Calc Pharmacy 151.7; Estimated Glomerular Filt Rate > 60; Glucose Random 100 mg/dL (60-115); Potassium 3.6 mmol/l (3.3-5.1); Sodium 139 mmol/L (135-145)
[2020-03-25] MEDS: Sodium Ferric Gluconat/Sucrose 125 MG in 0.9 % Sodium Chloride 100 ML 100 MG IV (16:20)
[2020-03-25] MEDS: Cyanocobalamin (Vitamin B-12) 1,000 MCG/ML VIAL 1000 MCG IM (17:44)
[2020-03-25] MEDS: Magnesium Oxide 400 MG TABLET PO (19:32)
[2020-03-26] MEDS: 0.9 % Sodium Chloride Flush 3 ML SYRINGE IVFLUSH ×3 (00:52→17:28)
[2020-03-26 03:41] VITALS: BP 129/84; PULSE 66; RESP 16; TEMP 36.6; O2SAT 94
[2020-03-26 06:59] LABS: Hematocrit 30.8 % (37-47); Hemoglobin 9.5 g/dl (12.0-16.0); Mean Corpuscular HGB Conc 30.8 g/dl (31.0-35.0); Mean Corpuscular Hemoglobin 28.4 pg (27.0-33.0); Mean Corpuscular Volume 91.9 fL (80-98); Mean Platelet Volume 11.2 fL (9.4-12.3); Platelet Count 104 X10*3/uL (160-400); Red Blood Count 3.35 X10*6/uL (4.20-5.50); Red Cell Distribution Width 24.1 % (11.0-16.0); White Blood Count 4.8 X10*3/uL (4.8-10.8)
[2020-03-26 07:14] LABS: Magnesium 1.7 mg/dL (1.6-2.6)
[2020-03-26 07:20] LABS: Anion Gap 12 (12-20); Blood Urea Nitrogen 3 mg/dL (9-16); Calcium 7.4 mg/dL (8.4-10.2); Carbon Dioxide 34 mmol/L (22-29); Chloride 101 mmol/L (96-108); Creatinine Clr Calc Pharmacy 146.5; Estimated Glomerular Filt Rate > 60; Glucose Random 95 mg/dL (60-115); Potassium 3.8 mmol/l (3.3-5.1); Sodium 143 mmol/L (135-145)
[2020-03-26 07:44] VITALS: BP 148/86; PULSE 65; RESP 20; TEMP 36.5; O2SAT 93
[2020-03-26] MEDS: Venlafaxine HCl ER 150 MG CAP.ER.24H PO (07:49)
[2020-03-26] MEDS: Metoprolol Tartrate 25 MG TABLET 12.5 MG PO ×2 (07:49→21:21)
[2020-03-26] MEDS: Venlafaxine HCl ER 75 MG CAP.ER.24H PO (07:49)
[2020-03-26] MEDS: buPROPion HCl XL 300 MG TAB.ER.24H PO (07:50)
[2020-03-26] MEDS: Lurasidone HCl 20 MG TABLET 60 MG PO (07:50)
[2020-03-26] MEDS: buPROPion HCl XL 150 MG TAB.ER.24H PO (07:50)
[2020-03-26] MEDS: Magnesium Oxide 400 MG TABLET PO ×2 (07:51→17:00)
[2020-03-26] MEDS: cloNIDine HCL 0.1 MG TABLET PO ×3 (07:51→21:20)
[2020-03-26] MEDS: Cyanocobalamin (Vitamin B-12) 1,000 MCG/ML VIAL 1000 MCG IM (07:51)
[2020-03-26] MEDS: hydrOXYzine HCL 50 MG TABLET PO ×3 (07:53→21:20)
[2020-03-26] MEDS: Potassium Chloride ER 20 MEQ TAB.ER.PRT 40 MEQ PO (09:08)
[2020-03-26] MEDS: Sodium Ferric Gluconat/Sucrose 125 MG in 0.9 % Sodium Chloride 100 ML 100 MG IV (11:34)
--- NOTE | 2020-03-26 14:11 | HO.PM.IMPN ---
Subjective Subjective Date of Service: 03/26/20 Interval History: the patient was seen and evaluated this morning Laying in bed, feels better than before but still have mild numbness Denies any fever, chills or shortness of breath No reported other overnight events. Systemic review: No fever, chills or weakness No chest pain, palpitation No shortness of breath or coughing No abdominal pain, nausea or vomiting No urinary symptoms No any rash or wounds Physical Exam Vital Signs: Vital Signs: Last Vital Signs Temp 97.7 F 03/26/20 07:44 Pulse 65 03/26/20 07:44 Resp 20 03/26/20 07:44 BP 148/86 H 03/26/20 07:44 Pulse Ox 93 03/26/20 07:44 Body Mass Index 39.1 Constitutional : Alert, oriented, not in distress Neck : Normal inspection, Supple Cardiovascular : RRR, S1 S2, no lower extremity edema Respiratory : Good bilateral air entry, no crackles, wheezes or rhonchi Gastrointestinal: soft, lax, Normal bowel sounds, Non tender Skin : Warm/Dry, No rash Neurological : Alert & oriented x3, No focal deficit Objective Data Current Medications Generic Name Dose Route Start Last Admin Trade Name Freq PRN Reason Stop Dose Admin Acetaminophen 650 mg 03/24/20 18:49 Acetaminophen 325 Mg Tablet PO Q6H PRN Pain, Mild (Pain Scale 1-3) Albuterol Sulfate 2 puff 03/25/20 08:51 Albuterol Sulfate 90 Mcg 8 Gm Inhaler INHALE Q4H PRN Shortness Of Breath Bupropion HCl 150 mg 03/25/20 09:00 03/26/20 07:50 Bupropion Hcl Xl 150 Mg Tab.Er.24h PO 150 mg DAILY [facility] Administration Bupropion HCl 300 mg 03/25/20 09:00 03/26/20 07:50 Bupropion Hcl Xl 300 Mg Tab.Er.24h PO 300 mg DAILY [facility] Administration Calcium Carbonate 1,000 mg 03/25/20 21:00 03/26/20 07:51 Calcium Carbonate 500 Mg Tablet PO 1,000 mg BID [facility] Administration Clonidine HCl 0.1 mg 03/25/20 09:00 03/26/20 07:51 Clonidine Hcl 0.1 Mg Tablet PO 0.1 mg TID [facility] Administration Protocol Cyanocobalamin 1,000 mcg 03/25/20 15:00 03/26/20 07:51 Cyanocobalamin (Vitamin B-12) 1,000 Mcg/Ml Vial IM 1,000 mcg DAILY [facility] Administration Ergocalciferol 1,250 mcg 03/29/20 09:00 Ergocalciferol (Vitamin D2) 1,250 Mcg Capsule PO MO@0900 [facility] Folic Acid 1 mg 03/25/20 16:00 03/26/20 11:35 Folic Acid 1 Mg/0.2 Ml Syringe IVPUSH 1 mg DAILY [facility] Administration Hydroxyzine HCl 50 mg 03/25/20 09:00 03/26/20 07:53 Hydroxyzine Hcl 50 Mg Tablet PO 50 mg TID [facility] Administration Ferric Sodium Gluconate 110 mls @ 100 mls/hr 03/25/20 15:00 03/26/20 13:04 Complex 125 mg/ Sodium IV 03/27/20 10:05 Infused Chloride DAILY [facility] Infusion Lurasidone HCl 60 mg 03/25/20 09:00 03/26/20 07:50 Lurasidone Hcl 20 Mg Tablet PO 60 mg DAILY [facility] Administration Magnesium Oxide 400 mg 03/25/20 17:30 03/26/20 07:51 Magnesium Oxide 400 Mg Tablet PO 400 mg BIDPC [facility] Administration Metoprolol Tartrate 12.5 mg 03/25/20 09:00 03/26/20 07:49 Metoprolol Tartrate 25 Mg Tablet PO 12.5 mg BID [facility] Administration Protocol Ondansetron HCl 4 mg 03/24/20 18:49 Ondansetron Hcl 4 Mg/2 Ml Vial IVPUSH Q8H PRN Nausea and Vomiting Potassium Chloride 40 meq 03/26/20 09:00 03/26/20 09:08 Potassium Chloride Er 20 Meq Tab.Er.Prt PO 40 meq DAILY [facility] Administration Sodium Chloride 3 ml 03/25/20 00:00 03/26/20 07:49 0.9 % Sodium Chloride Flush 3 Ml Syringe IVFLUSH 3 ml QSHIFT [facility] Administration Venlafaxine HCl 75 mg 03/25/20 09:00 03/26/20 07:49 Venlafaxine Hcl Er 75 Mg Cap.Er.24h PO 75 mg DAILY [facility] Administration Venlafaxine HCl 150 mg 03/25/20 09:00 03/26/20 07:49 Venlafaxine Hcl Er 150 Mg Cap.Er.24h PO 150 mg DAILY [facility] Administration Labs CBC & Chem 7: 03/26/20 05:58 03/26/20 05:58 Microbiology Microbiology Results: Microbiology 03/24/20 21:30 Urine clean catch - Clean Catch Midstream Urine Culture - Final Escherichia coli 03/24/20 15:45 Blood - Venous Blood Culture - Preliminary No growth after 24 hours. 03/24/20 15:24 Blood - Venous Blood Culture - Preliminary No growth after 24 hours. Assessment and Plan (1) Numbness and tingling: Status: Acute (2) Acute hypokalemia: Status: Acute (3) Diarrhea: Status: Acute (4) Hypomagnesemia: Status: Acute (5) Generalized weakness: Status: Acute (6) Anemia: Status: Acute (7) Thrombocytopenia: Status: Acute (8) Malabsorption: Status: Acute (9) Moderate protein malnutrition: Status: Acute Assessment and Plan: A 49 years old lady with PMH X of gastric bypass, small-bowel resection, recent C diff colitis, HTN, adrenal gland problem among others who presents to the hospital with complaint of weakness and numbness in her extremities after having episodes of nausea and vomiting for the last 3 days. Generalized weakness Likely secondary to dehydration and electrolyte imbalance To correct potassium and magnesium To check the need for PT before discharge Hypokalemia Potassium of the improved to 3.4 with supplement To use p.o. supplement to decide Repeat BMP Pending cortisol level, patient not aware of any adrenal disease Hypomagnesemia Improved to 1.8 Like secondary to diarrhea and vomiting Start p.o. supplement Moderate protein malnutrition Likely secondary to short gut syndrome To give supplement with food Acute on chronic anemia Thrombocytopenia Blood level dropped to 10 from baseline of 12 Likely a result of malnutrition, iron folate and B12 deficiencies No clear bleeding noticed The to check occult blood Hematology input appreciated, to give replacement Start iron, folate and B12 supplement Hypocalcemia Corrected calcium of 7.7 Increase calcium supplement to 1 g b.i.d. Pending Nephrology evaluation DVT PPX SCDs for now
--- NOTE | 2020-03-26 14:23 | MHC.CM.PN ---
DP IS [employer]. pATIENT WILL ARRANGE FOR TRANSPORT. CM WILL FOLLOW.
[2020-03-26 15:42] LABS: Anion Gap 18 (12-20); Blood Urea Nitrogen 5 mg/dL (9-16); Calcium 7.8 mg/dL (8.4-10.2); Carbon Dioxide 26 mmol/L (22-29); Chloride 105 mmol/L (96-108); Estimated Glomerular Filt Rate > 60; Glucose Random 100 mg/dL (60-115); Potassium 5.8 mmol/l (3.3-5.1); Sodium 143 mmol/L (135-145)
[2020-03-26 16:00] VITALS: BP 142/85; PULSE 82; RESP 18; O2SAT 93
[2020-03-26 17:00] VITALS: PULSE 94
--- NOTE | 2020-03-26 17:07 | P.CONNP_ITS ---
History of Present Illness Reason for Consult Consult date: 03/26/20 Reason for consult: severe hypokalmeia at 1.9 on adm Chief Complaint Chief complaint: numbness, hypokalemia, nausea and vomiting History of Present Illness Narrative: 49 y/o f h/o gatric bypass 2005 and SI rescetion some years after. Limited old rec on [facility] EHR. On adm gen weakness/numbness and N/V with severe hypoK 1.9 and hypoCa and low albumin. She sates in past she had K prob and some sort of adrenal prob. Overall feeling much better. N/V resolved now. Review of Systems Review of Systems No fever, chills , reports significant weakness No chest pain, palpitation No shortness of breath or coughing No abdominal pain, reporting vomiting and diarrhea up to 4 times a day No urinary symptoms No any rash or wounds PMFSH Past Medical History Medical History Adrenal gland disease Anxiety and depression Asthma Clostridioides difficile diarrhea Foreign body Heart murmur Hypertension Knee pain Narcolepsy Ventral hernia Family History Family History Father Unknown family medical history Mother Emphysema, unspecified Son No problems noted. Surgical History Surgical History History of intestinal surgery Social History Social History Household Members: Significant Other and Friend(s) [facility] Do you presently have visiting nurse or other home services: No Alcohol intake: current Alcohol intake frequency: holidays/special occasions only Alcohol type: wine Smoking Status: Never smoker Smoked in Last 30 Days: No Use of substances other than those prescribed or required for medical reasons: No Currently Displaying Signs/Symptoms of Drug Intoxication Withdrawal: No Advance Directives: No Advance Directives Information Provided: No Do you have thoughts of harming others: None Do you have a plan to hurt others: No Plan Recently lost weight without trying: No service: No Current occupational status: disabled Meds Allergies Allergy/AdvReac Type Severity Reaction Status Date / Time Flexeril Allergy Unknown anxious Verified 03/24/20 13:13 Latex Allergy Unknown skin Verified 03/24/20 13:13 bubbles prednisone [PREDNISONE] Allergy Unknown Angioedema Verified 03/24/20 13:13 Home Medications Medication Instructions Recorded Confirmed Type acyclovir 200 mg PO TID PRN 03/24/20 03/24/20 History bupropion HCl 150 mg PO QAM 03/24/20 03/24/20 History bupropion HCl 300 mg PO QAM 03/24/20 03/24/20 History clonidine HCl 0.1 mg PO TID PRN 03/24/20 03/24/20 History ergocalciferol (vitamin D2) 1,250 mcg PO MO@0900 03/24/20 03/24/20 History [Vitamin D2] hydroxyzine HCl 50 mg PO TID PRN 03/24/20 03/24/20 History lurasidone [Latuda] 60 mg PO DAILY 03/24/20 03/24/20 History ondansetron 4 mg PO DAILY PRN 03/24/20 03/24/20 History venlafaxine 75 mg PO DAILY 03/24/20 03/24/20 History venlafaxine 150 mg PO DAILY 03/24/20 03/24/20 History Physical Exam Vital Signs: Last Vital Signs Temp 97.7 F 03/26/20 07:44 Pulse 94 03/26/20 17:00 Resp 20 03/26/20 07:44 BP 148/86 H 03/26/20 07:44 Pulse Ox 93 03/26/20 07:44 Body Mass Index 39.1 Results Lab Results Result Diagrams: 03/26/20 05:58 03/26/20 15:01 Lab results: Chemistry 03/24/20 03/24/20 03/24/20 14:42 14:42 17:56 Sodium 141 143 Potassium 1.9 L* 2.3 L* D Carbon Dioxide 38 H 37 H BUN 4 L 4 L Creatinine 0.63 0.59 Calcium 6.7 L Cancelled 6.3 L Albumin 2.8 L 03/25/20 03/25/20 03/26/20 05:32 15:15 05:58 Sodium 140 139 143 Potassium 2.4 L* 3.6 D 3.8 Carbon Dioxide 32 H 35 H 34 H BUN 3 L 2 L 3 L Creatinine 0.53 0.57 0.59 Calcium 6.4 L 6.9 L D 7.4 L D Albumin 03/26/20 15:01 Sodium 143 Potassium 5.8 H D Carbon Dioxide 26 BUN 5 L D Creatinine 0.66 Calcium 7.8 L Albumin Hematology 03/24/20 03/25/20 03/26/20 14:42 05:33 05:58 WBC 7.7 5.5 4.8 Hgb 10.0 L 9.1 L 9.5 L Plt Count 96 L 82 L 104 L D Urinalysis 03/24/20 21:28 Urine Color YELLOW Urine Appearance CLEAR Urine pH 6.5 Ur Specific [place] 1.015 Urine Protein NEG Urine Glucose (UA) NEG Urine Ketones NEG Urine Blood NEG Urine Nitrite NEG Ur Leukocyte Esterase 2+ H Urine RBC 1-4 Urine WBC 10-14 H Ur Squamous Epith Cells 1+ Assessment and Plan (1) Numbness and tingling: Status: Acute (2) Acute hypokalemia: Status: Acute (3) Diarrhea: Qualifiers: Diarrhea type: presumed infectious Qualified Code(s): R19.7 - Diarrhea, unspecified Status: Acute (4) Hypomagnesemia: Status: Acute (5) Generalized weakness: Status: Acute (6) Anemia: Qualifiers: Anemia type: folate deficiency Status: Acute (7) Thrombocytopenia: Status: Acute (8) Malabsorption: Qualifiers: Intestinal malabsorption type: unspecified Qualified Code(s): K90.9 - Intestinal malabsorption, unspecified Status: Acute (9) Moderate protein malnutrition: Status: Acute A 49 years old lady with PMH X of gastric bypass, small-bowel resection, recent C diff colitis, HTN, adrenal gland problem among others who presents to the hospital with complaint of weakness and numbness in her extremities after having episodes of nausea and vomiting for the last 3 days. 1. Severe HypoK: most likely d/t N/V/dehydration resulting in seondary hyperaldo state and urine K excretion as a func of appropriate incr megan ot distally reabsorb Na in exchange for urine k excretio; underlying tubulualr defect with Urinary K wasting a normotensive would raise concern for Barter Syn or [place] 2.HypoCa: ques vit D def d/t gastric bypass Doesprior gastric bypass play a role in hypoK..onltyindirectly thru dehydration and 2ry inc in megan REC: check vit D 25 level; meause urine K,osm and Chloridethe next time she has low seum K; she be a candidate for vit D25/Ca suppl
[2020-03-26 19:46] VITALS: BP 127/70; PULSE 72; RESP 15; TEMP 37.2; O2SAT 90; O2SAT 95
[2020-03-27 00:21] VITALS: BP 140/71; PULSE 71; RESP 18; TEMP 36.6; O2SAT 97
[2020-03-27] MEDS: 0.9 % Sodium Chloride Flush 3 ML SYRINGE IVFLUSH ×2 (00:41→07:59)
[2020-03-27 04:00] VITALS: BP 141/84; PULSE 74; RESP 16; O2SAT 95
[2020-03-27] MEDS: Metoprolol Tartrate 25 MG TABLET 12.5 MG PO (07:57)
[2020-03-27] MEDS: buPROPion HCl XL 150 MG TAB.ER.24H PO (07:58)
[2020-03-27] MEDS: Cyanocobalamin (Vitamin B-12) 1,000 MCG/ML VIAL 1000 MCG IM (07:58)
[2020-03-27] MEDS: Magnesium Oxide 400 MG TABLET PO (07:58)
[2020-03-27] MEDS: Lurasidone HCl 20 MG TABLET 60 MG PO (07:58)
[2020-03-27] MEDS: hydrOXYzine HCL 50 MG TABLET PO (07:59)
[2020-03-27] MEDS: cloNIDine HCL 0.1 MG TABLET PO (07:59)
[2020-03-27] MEDS: buPROPion HCl XL 300 MG TAB.ER.24H PO (07:59)
[2020-03-27] MEDS: Venlafaxine HCl ER 150 MG CAP.ER.24H PO (07:59)
[2020-03-27] MEDS: Venlafaxine HCl ER 75 MG CAP.ER.24H PO (07:59)
[2020-03-27 08:00] VITALS: BP 137/88; PULSE 81; RESP 18; TEMP 36.7; O2SAT 99
[2020-03-27 08:03] VITALS: BP 141/84; PULSE 74; O2SAT 95
[2020-03-27 09:47] LABS: Alanine Aminotransferase 19 U/L (0-31); Albumin Level 2.5 g/dL (3.5-5.0); Alkaline Phosphatase 102 U/L (39-117); Anion Gap 15 (12-20); Aspartate Amino Transferase 46 U/L (5-31); Bilirubin Direct 0.2 mg/dL (0.0-0.5); Bilirubin Total 0.5 mg/dL (0.0-1.0); Blood Urea Nitrogen 5 mg/dL (9-16); Calcium 7.3 mg/dL (8.4-10.2); Carbon Dioxide 30 mmol/L (22-29); Chloride 100 mmol/L (96-108); Creatinine Clr Calc Pharmacy 149.1; Estimated Glomerular Filt Rate > 60; Glucose Random 84 mg/dL (60-115); Potassium 3.5 mmol/l (3.3-5.1); Sodium 141 mmol/L (135-145); Total Protein 5.2 g/dL (6.5-8.0)
[2020-03-27 10:18] LABS: Vitamin D 25-OH Total 12.7 ng/mL (>30)
[2020-03-27] MEDS: Sodium Ferric Gluconat/Sucrose 125 MG in 0.9 % Sodium Chloride 100 ML 100 MG IV (10:49)
[2020-03-27 11:27] VITALS: BMI 39.1
[2020-03-27 11:51] VITALS: BP 115/80; PULSE 63; RESP 16; TEMP 36.7; O2SAT 96
--- NOTE | 2020-03-27 12:30 | MHC.CM.PN ---
PT DCD HOME NO SERVCIES
--- NOTE | 2020-03-27 17:57 | PM.DS ---
DS: Providers Provider Date of admission: 03/24/20 18:49 Primary care physician: Chantale Chairez MD Consults: 03/25/20 08:56 Consult to Hematology / Oncology Routine Consulting Provider: Angeles Blankenship Reason for consultation: Evaluation for worsening anemia and thrombocytopenia 03/25/20 15:05 Consult to Nephrology Routine Consulting Provider: Julio Finch Reason for consultation: Eval of recurrent severe electrolytes imbalance DS: Diagnosis Discharge Diagnosis (1) Acute hypokalemia: Status: Acute (2) Numbness and tingling: Status: Acute (3) Diarrhea: Status: Acute (4) Hypomagnesemia: Status: Acute (5) Generalized weakness: Status: Acute (6) Anemia: Status: Acute (7) Thrombocytopenia: Status: Acute (8) Malabsorption: Status: Acute (9) Moderate protein malnutrition: Status: Acute DS: Medications Discharge Medications Home Medications: Home Medications Medication Instructions Recorded Confirmed Latuda 60 mg PO DAILY 03/24/20 03/24/20 acyclovir 200 mg PO TID PRN 03/24/20 03/24/20 bupropion HCl 150 mg PO QAM 03/24/20 03/24/20 bupropion HCl 300 mg PO QAM 03/24/20 03/24/20 clonidine HCl 0.1 mg PO TID PRN 03/24/20 03/24/20 ergocalciferol (vitamin D2) 1,250 mcg PO MO@0900 03/24/20 03/24/20 [Vitamin D2] hydroxyzine HCl 50 mg PO TID PRN 03/24/20 03/24/20 ondansetron 4 mg PO DAILY PRN 03/24/20 03/24/20 venlafaxine 75 mg PO DAILY 03/24/20 03/24/20 venlafaxine 150 mg PO DAILY 03/24/20 03/24/20 Previous Rx's Medication Instructions Recorded metoprolol tartrate 25 mg tablet 12.5 mg PO BID #60 tab 02/23/20 calcium carbonate [Chidi-Gest 200 mg PO BID #60 tab 03/27/20 Antacid] ferrous sulfate 325 mg PO DAILY #30 tab 03/27/20 folic acid 1 mg PO DAILY #30 tab 03/27/20 magnesium oxide 400 mg PO BIDPC #60 tab 03/27/20 mecobalamin (vitamin B12) [B12 1,000 mcg PO DAILY #30 tab 03/27/20 Active] potassium chloride 40 meq PO DAILY #60 tab 03/27/20 DS: Summary Hospital Course Hospital Course: Admission note HPI A 49 years old lady with PMH X of gastric bypass, small-bowel resection, recent C diff colitis, HTN, adrenal gland problem among others who presents to the hospital with complaint of weakness and numbness in her extremities after having episodes of nausea and vomiting for the last 3 days. The patient was recently admitted to [facility] with C diff colitis requiring ICU admission. The patient has recovered and has been around her normal self for the last 3 weeks and to the last 3 days when she felt nauseated and started to vomit 4 to 5 times a day along with diarrhea of watery 4 to 5 times a day with no abdominal pain, fever, chills or urinary symptoms. Today she decided to come to the hospital as the weakness and numbness gets worse. In the emergency she was found to have significantly low potassium and magnesium. Admitted for further evaluation and treatment. Hospital course: Generalized weakness secondary to dehydration and electrolyte imbalance Improved after correction potassium and magnesium Evaluated by PT who recommended no therapy at discharge Hypokalemia Admitted for potassium of 1.9. Required IV and oral supplement with almost 200 mEq. Potassium improved to 3.5 with supplement. Daily supplement counted to be around 40 mEq. To be discharged home on the current dose and to follow-up with doctor Najera from Nephrology you were evaluated in the hospital with repeat BMP. Her problem is likely result of short gut syndrome. Hypomagnesemia Improved to 1.8 after receiving multiple supplements. Like secondary to diarrhea and vomiting Start p.o. supplement at time of discharge Acute on chronic anemia Thrombocytopenia Blood level dropped to 10 from baseline of 12 over the course of last year Likely a result of malnutrition, iron folate and B12 deficiencies No clear bleeding noticed Dr. Blankenship from Hematology evaluated the patient and recommended replacement therapy as most likely a finding associated with poor nutrition status. Start iron, folate and B12 supplement as IV in the medication and to be continued orally at time of discharge. Hypocalcemia Corrected calcium of 7.7 Discharged on calcium supplement to follow with Time Spent with Patient Time attestation: Total time spent providing and/or coordinating discharge services: Physical Exam Vital Signs: Vital Signs: Last Vital Signs Temp 98.1 F 03/27/20 11:51 Pulse 63 03/27/20 11:51 Resp 16 03/27/20 11:51 BP 115/80 03/27/20 11:51 Pulse Ox 96 03/27/20 11:51 Body Mass Index 39.1 Constitutional : Alert, oriented, not in distress Neck : Normal inspection, Supple Cardiovascular : RRR, S1 S2, no lower extremity edema Respiratory : Good bilateral air entry, no crackles, wheezes or rhonchi Gastrointestinal: soft, lax, Normal bowel sounds, Non tender Skin : Warm/Dry, No rash Neurological : Alert & oriented x3, No focal deficit DS: Data Data Completed and Pending Labs on day of discharge: 03/24/20 14:30 0.9 % Sodium Chloride [Ns] 1,000 ml IVCONT 999 mls/hr 03/24/20 14:42 Basic Metabolic Panel Stat Complete Blood Count Auto Diff Stat Lactic Acid Stat Liver Panel Stat Magnesium Stat SARS-CoV2/FLU/RSV Stat 03/24/20 14:58 EKG Documentation DIRECTED 03/24/20 15:47 Magnesium Sulfate/H2O 2 gm in 50 ml IV ONCE Potassium Chloride ER [Klor-con] 60 meq PO ONCE ONE 03/24/20 15:49 ECG 12 lead EKG Stat EKG Documentation DIRECTED 03/24/20 16:00 KCl 40 mEq in 0.9 % Sodium Chl 40 meq in 1,000 ml IVCONT 250 mls/hr 03/24/20 16:58 Potassium Chloride ER [Klor-con] 40 meq PO ONCE ONE 03/24/20 17:27 Add Laboratory Test Urgent 03/24/20 17:56 Basic Metabolic Panel Stat Hold Lt Blue - Possible Coag Stat Prothrombin Time INR Stat 03/24/20 18:23 LORazepam [Ativan] 1 mg PO ONCE ONE 03/24/20 18:43 Code Status Routine Transfer Order Routine 03/24/20 18:49 Acetaminophen [Tylenol] 650 mg PO Q6H PRN Magnesium Sulfate/H2O 2 gm in 50 ml IV ONCE Potassium Chloride ER [Klor-con] 60 meq PO ONCE ONE Potassium Chloride/H20 10 meq in 100 ml IV Q1H ondansetron HCL [Zofran] 4 mg IVPUSH Q8H PRN 03/24/20 18:49 Cont. Telemetry w/Vital Sign limit Q4HR Pulse Oximetry Q4HR Vital Signs Q4HR Physical Therapy Eval & Treat NEEDED 03/24/20 Dinner Low Sodium Diet 03/24/20 21:28 CDiff with Reflex to PCR Stat Drug Screen Urine Stat [id number] Stat 03/24/20 21:30 Urine Culture Routine 03/24/20 21:43 Ambulate QSHIFT WHILE AWAKE Compression Therapy QSHIFT IV insert/maintain Q4HR Intake and Output QSHIFTE 03/25/20 00:00 0.9 % Sodium Chloride Flush [NS Flush] 3 ml IVFLUSH QSHIFT 03/25/20 05:32 Basic Metabolic Panel DAILY@0600 03/25/20 05:33 Complete Blood Count Auto Diff DAILY@0600 Magnesium Routine Thyroid Stimulating Hormone Routine 03/25/20 07:03 Cortisol Routine 03/25/20 08:51 Albuterol Sulfate [Ventolin] 2 puff INHALE Q4H PRN 03/25/20 09:00 Calcium Carbonate [Os-Chidi] 500 mg PO BID Lurasidone HCl [Latuda] 60 mg PO DAILY Metoprolol Tartrate [Lopressor] 12.5 mg PO BID Potassium Chloride ER [Klor-Con] 60 meq PO TID Potassium Chloride/H20 10 meq in 100 ml IV Q1H Venlafaxine HCl ER [Effexor XR] 150 mg PO DAILY Venlafaxine HCl ER [Effexor XR] 75 mg PO DAILY buPROPion HCl XL [Wellbutrin XL] 150 mg PO DAILY buPROPion HCl XL [Wellbutrin XL] 300 mg PO DAILY cloNIDine HCL [Catapres] 0.1 mg PO TID hydrOXYzine HCL [Atarax] 50 mg PO TID 03/25/20 09:32 IRON PROFILE Urgent Lactate Dehydrogenase Urgent Reticulocyte Count Urgent Vitamin B12 and Folate Urgent 03/25/20 15:00 Cyanocobalamin (Vitamin B-12) [Vitamin B-12] 1,000 mcg IM DAILY Sodium Ferric Gluconat/Sucrose [Ferrlecit] 125 mg 0.9 % Sodium Chloride [Ns] 100 ml IV DAILY 03/25/20 15:15 Basic Metabolic Panel Routine Magnesium Routine 03/25/20 16:00 Folic Acid 1 mg IVPUSH DAILY 03/25/20 17:30 Magnesium Oxide [Mag-Ox] 400 mg PO BIDPC 03/25/20 21:00 Calcium Carbonate [Os-Chidi] 1,000 mg PO BID 03/26/20 05:58 Basic Metabolic Panel DAILY@0600 Complete Blood Count no Diff DAILY@0600 Magnesium Routine 03/26/20 09:00 Potassium Chloride ER [Klor-con] 40 meq PO DAILY 03/26/20 15:01 Basic Metabolic Panel Routine 03/27/20 06:38 Basic Metabolic Panel DAILY@0600 Liver Panel Routine Vitamin D 25-OH Total Routine 03/27/20 12:11 Potassium Chloride ER [Klor-Con] 40 meq PO ONCE ONE 03/29/20 09:00 Ergocalciferol (Vitamin D2) [Drisdol] 1,250 mcg PO MO@0900 Laboratory Last Values WBC 4.8 X10*3/uL (4.8-10.8) 03/26/20 05:58 RBC 3.35 X10*6/uL (4.20-5.50) L 03/26/20 05:58 Hgb 9.5 g/dl (12.0-16.0) L 03/26/20 05:58 Hct 30.8 % (37-47) L 03/26/20 05:58 MCV 91.9 fL (80-98) 03/26/20 05:58 MCH 28.4 pg (27.0-33.0) 03/26/20 05:58 MCHC 30.8 g/dl (31.0-35.0) L 03/26/20 05:58 RDW 24.1 % (11.0-16.0) H 03/26/20 05:58 Plt Count 104 X10*3/uL (160-400) L D 03/26/20 05:58 MPV 11.2 fL (9.4-12.3) 03/26/20 05:58 Immature Gran % (Auto) 0.2 % (0.0-0.4) 03/25/20 05:33 Neut % (Auto) 68.4 % (45-73) 03/25/20 05:33 Lymph % (Auto) 20.6 % (20-40) 03/25/20 05:33 [place] % (Auto) 9.0 % (2-11) 03/25/20 05:33 Eos % (Auto) 1.4 % (0-4) 03/25/20 05:33 Baso % (Auto) 0.4 % (0-2) 03/25/20 05:33 Lymph # (Auto) 1.1 X10*3/uL (1.2-4.9) L 03/25/20 05:33 [place] # (Auto) 0.5 X10*3/uL (0.1-1.2) 03/25/20 05:33 Eos # (Auto) 0.1 X10*3/uL (0.0-0.4) 03/25/20 05:33 Baso # (Auto) 0.0 X10*3/uL (0.0-0.2) 03/25/20 05:33 Abs Immat Gran (auto) 0.01 X10*3/uL (0.00-0.03) 03/25/20 05:33 Absolute Neuts (auto) 3.8 X10*3/uL (2.0-8.3) 03/25/20 05:33 Absolute Nucleated RBC 0.000 X10*3/uL (0.0-0.012) 03/26/20 05:58 Nucleated RBC % (auto) 0.0 /100WBC (0.0-0.2) 03/26/20 05:58 Absolute Retic 0.044 X10*6/uL (0.026-0.095) 03/25/20 09:32 Percent Retic 1.2 % (0.5-1.8) 03/25/20 09:32 Immature Retic Fraction 25.2 % (3.0-15.9) H 03/25/20 09:32 Retic Hgb Equivalent 29.9 pg (30.0-35.0) L 03/25/20 09:32 PT 12.5 SEC (10.8-13.0) 03/24/20 17:56 INR 1.1 (0.9-1.1) 03/24/20 17:56 Hold Blue Top SEE NOTE 03/24/20 17:56 Sodium 141 mmol/L (135-145) 03/27/20 06:38 Potassium 3.5 mmol/l (3.3-5.1) D 03/27/20 06:38 Chloride 100 mmol/L (96-108) 03/27/20 06:38 Carbon Dioxide 30 mmol/L (22-29) H 03/27/20 06:38 Anion Gap 15 (12-20) 03/27/20 06:38 BUN 5 mg/dL (9-16) L 03/27/20 06:38 Creatinine 0.58 mg/dL (0.5-1.4) 03/27/20 06:38 Estim Creat Clear Calc 149.1 03/27/20 06:38 Estimated GFR > 60 03/27/20 06:38 Random Glucose 84 mg/dL (60-115) 03/27/20 06:38 Lactic Acid 1.3 mmol/L (0.5-2.0) 03/24/20 14:42 Calcium 7.3 mg/dL (8.4-10.2) L D 03/27/20 06:38 Magnesium 1.7 mg/dL (1.6-2.6) 03/26/20 05:58 Iron 33 mcg/dL (30-160) 03/25/20 09:32 TIBC 309 mcg/dL (228-428) 03/25/20 09:32 % Saturation 11 % (15-50) L 03/25/20 09:32 Unsat Iron Binding 276 ug/dL 03/25/20 09:32 Total Bilirubin 0.5 mg/dL (0.0-1.0) 03/27/20 06:38 Direct Bilirubin 0.2 mg/dL (0.0-0.5) 03/27/20 06:38 AST 46 U/L (5-31) H 03/27/20 06:38 ALT 19 U/L (0-31) 03/27/20 06:38 Alkaline Phosphatase 102 U/L (39-117) D 03/27/20 06:38 Lactate Dehydrogenase 279 U/L (122-220) H 03/25/20 09:32 Total Protein 5.2 g/dL (6.5-8.0) L 03/27/20 06:38 Albumin 2.5 g/dL (3.5-5.0) L 03/27/20 06:38 Vitamin B12 250 pg/mL (200-900) 03/25/20 09:32 25-OH Vitamin D Total 12.7 ng/mL (>30) 03/27/20 06:38 Folate 3.1 ng/mL (> or = 4.0) L 03/25/20 09:32 TSH 1.90 uIU/mL (0.32-4.0) 03/25/20 05:33 Cortisol 11.3 mcg/dL 03/25/20 07:03 Urine Color YELLOW 03/24/20 21:28 Urine Appearance CLEAR 03/24/20 21:28 Urine pH 6.5 (5.0-8.0) 03/24/20 21:28 Ur Specific [place] 1.015 (1.005-1.025) 03/24/20 21:28 Urine Protein NEG MG/DL (NEG-TRACE) 03/24/20 21:28 Urine Glucose (UA) NEG MG/DL (NEG) 03/24/20 21:28 Urine Ketones NEG MG/DL (NEG) 03/24/20 21:28 Urine Blood NEG (NEG) 03/24/20 21:28 Urine Nitrite NEG (NEG) 03/24/20 21:28 Ur Leukocyte Esterase 2+ (NEG) H 03/24/20 21:28 Urine RBC 1-4 /HPF (0) 03/24/20 21:28 Urine WBC 10-14 /HPF (0-4) H 03/24/20 21:28 Ur Squamous Epith Cells 1+ /LPF 03/24/20 21:28 Urine Bacteria 2+ /LPF 03/24/20 21:28 Stool Occult Blood NEG (NEG) 03/24/20 21:28 Urine Opiates Screen Not Detected (Not Detect) 03/24/20 21:28 Ur Barbiturates Screen Not Detected (Not Detect) 03/24/20 21:28 Ur Phencyclidine Scrn Not Detected (Not Detect) 03/24/20 21:28 Ur Amphetamines Screen Not Detected (Not Detect) 03/24/20 21:28 U Benzodiazepines Scrn Not Detected (Not Detect) 03/24/20 21:28 Urine Cocaine Screen Not Detected (Not Detect) 03/24/20 21:28 U Marijuana (THC) Screen Not Detected (Not Detect) 03/24/20 21:28 C. difficile Toxin A&B Negative (Negative) 03/24/20 21:28 C. difficile Antigen Negative (Negative) 03/24/20 21:28 C. difficile Interpret SEE NOTE 03/24/20 21:28 Coronavirus (PCR) NEGATIVE (Negative) 03/24/20 14:42 Influenza Type A (PCR) NEGATIVE (Negative) 03/24/20 14:42 Influenza Type B (PCR) NEGATIVE (Negative) 03/24/20 14:42 RSV RNA Qual (PCR) NEGATIVE (Negative) 03/24/20 14:42 Preliminary micro results at discharge 03/24/20 15:45 Blood Culture - Preliminary Blood - Venous No growth after 48 hours. 03/24/20 15:24 Blood Culture - Preliminary Blood - Venous No growth after 48 hours. Discharge Plan Discharge Patient Disposition: Home, Self-Care Referrals: Chantale Chairez MD [Primary Care Provider] - Discharge Medications: New magnesium oxide 400 mg (241.3 mg magnesium) Tablet 400 mg PO BIDPC Qty: 60 RF: 0 B12 Active 1,000 mcg tablet,chewable 1,000 mcg PO DAILY Qty: 30 RF: 0 folic acid 1 mg tablet 1 mg PO DAILY Qty: 30 RF: 0 ferrous sulfate 325 mg (65 mg iron) tablet 325 mg PO DAILY Qty: 30 RF: 0 potassium chloride 20 mEq tablet extended release 40 meq PO DAILY Qty: 60 RF: 1 Continued metoprolol tartrate 25 mg tablet 12.5 mg PO BID Qty: 60 RF: 0 clonidine HCl 0.1 mg Tablet 0.1 mg PO TID PRN (Reason: Anxiety) RF: 0 venlafaxine 75 mg Capsule,Extended Release 24hr 75 mg PO DAILY RF: 0 venlafaxine 150 mg Capsule,Extended Release 24hr 150 mg PO DAILY RF: 0 hydroxyzine HCl 50 mg Tablet 50 mg PO TID PRN (Reason: Anxiety) RF: 0 acyclovir 200 mg Capsule 200 mg PO TID PRN (Reason: Outbreak) RF: 0 ergocalciferol (vitamin D2) [Vitamin D2] 1,250 mcg (50,000 unit) Capsule 1,250 mcg PO MO@0900 RF: 0 ondansetron 4 mg Tablet,Disintegrating 4 mg PO DAILY PRN (Reason: Nausea And Vomiting) RF: 0 bupropion HCl 300 mg Tablet Extended Release 24 Hr 300 mg PO QAM RF: 0 bupropion HCl 150 mg Tablet Extended Release 24 Hr 150 mg PO QAM RF: 0 Latuda 60 mg Tablet 60 mg PO DAILY RF: 0 calcium carbonate [Chidi-Gest Antacid] 200 mg calcium (500 mg) tablet,chewable 200 mg PO BID Qty: 60 RF: 0 Discharge Orders: Discharge Order (Routine); Ordered 03/27/20 Ordered By: Lorie Solis Diet: advance to usual diet Activity on Discharge: As tolerated Discharge Date/Time: 03/27/20 14:20 Other Ambulatory Orders: Basic Metabolic Panel (Routine) Timeframe: 20200331 Facility: [facility] - Location: Laboratory Ordered By: Lorie Solis Magnesium (Routine) Timeframe: 20200331 Facility: [facility] - Location: Laboratory Ordered By: Lorie Solis Visit Report Forms: Patient Portal Discharge page Care Plan Goals: Read below Health Concerns: Read below Plan of Treatment: You were admitted to the hospital for evaluation of weakness and numbness. Found to have significant electrolyte imbalance including low potassium, magnesium and calcium. You were also noticed to have a drop in your blood and platelets level. Your treated supplement of potassium, calcium and magnesium with good response as your numbers normalized and the numbness and weakness significantly improved. You were evaluated by doctor Najera from Nephrology who will continue to follow-up as outpatient. Please contact the clinic for follow-up. You were evaluated by hide stretcher hand Dr. Blankenship for low blood and platelet levels and treated with IV iron, IV folic acid and B12 injections. To continue with oral forms and to repeat blood test in month or so. To follow-up with PCP as scheduled Will repeat blood test on March 31. To follow-up on the result with doctor Najera.
[2020-03-31 18:13] LABS: Cortisol, Free 0.51 mcg/dL
== END 2020-03-27 14:20 | disposition home or self-care (01) | DRG 641 ==
LOC: HO.ED 16:12 → HO.IMC 19:41
PROVIDERS: Internal Medicine; Physician Assistant; Admitting Provider Student in an Organized Health Care Education/Training Program; Emergency Provider Emergency Medicine; PCP Internal Medicine; Visit Provider Student in an Organized Health Care Education/Training Program
DX: E83.42 Hypomagnesemia (principal); E44.1 Mild protein-calorie malnutrition; K90.9 Intestinal malabsorption, unspecified; E83.51 Hypocalcemia; D69.6 Thrombocytopenia, unspecified; E86.0 Dehydration; E87.6 Hypokalemia; D52.9 Folate deficiency anemia, unspecified; Z98.84 Bariatric surgery status; Z20.828 Contact with and (suspected) exposure to other viral communicable diseases; Z68.39 Body mass index [BMI] 39.0-39.9, adult; Z79.899 Other long term (current) drug therapy
CPT/HCPCS: 0241U; 36415; 80048; 80076; 80307; 81001; 82272; 82306; 82310; 82530; 82533; 82607; 82746; 83540; 83605; 83615; 83735; 84443; 85025; 85027; 85045; 85610; 87040; 87086; 87088; 87186; 87324; 87449; 93005; 96361; 96365; 97161; 99285; 99291; J2916; J3475

== ENCOUNTER 2020-05-06 15:05 | Outpatient (REF) | payer OTHER, SELFPAY ==
[2020-05-06 16:40] LABS: Hematocrit 35.4 % (37-47); Hemoglobin 11.1 g/dl (12.0-16.0); Mean Corpuscular HGB Conc 31.4 g/dl (31.0-35.0); Mean Corpuscular Hemoglobin 28.4 pg (27.0-33.0); Mean Corpuscular Volume 90.5 fL (80-98); Mean Platelet Volume 10.6 fL (9.4-12.3); Platelet Count 349 X10*3/uL (160-400); Red Blood Count 3.91 X10*6/uL (4.20-5.50); Red Cell Distribution Width 19.7 % (11.0-16.0); White Blood Count 10.8 X10*3/uL (4.8-10.8)
[2020-05-06 17:04] LABS: Alanine Aminotransferase 12 U/L (0-31); Albumin Level 3.2 g/dL (3.5-5.0); Alkaline Phosphatase 133 U/L (39-117); Anion Gap 15 (12-20); Aspartate Amino Transferase 19 U/L (5-31); Blood Urea Nitrogen 17 mg/dL (9-16); Calcium 8.1 mg/dL (8.4-10.2); Carbon Dioxide 21 mmol/L (22-29); Chloride 105 mmol/L (96-108); Estimated Glomerular Filt Rate > 60; Glucose Random 83 mg/dL (60-115); Iron 42 mcg/dL (30-160); Magnesium 2.1 mg/dL (1.6-2.6); Percent Iron Saturation 14 % (15-50); Potassium 4.8 mmol/L (3.3-5.1); Sodium 136 mmol/L (135-145); Total Iron Binding Capacity 309 mcg/dL (228-428); Total Protein 7.3 g/dL (6.5-8.0); Unsaturated Iron Binding 267 ug/dL
[2020-05-06 17:11] LABS: Bilirubin Total 0.3 mg/dL (0.0-1.0)
[2020-05-06 17:33] LABS: Folate 4.2 ng/mL (> or = 4.0); Vitamin B12 846 pg/mL (200-900)
== END 2020-05-06 15:06 | disposition home or self-care (01) ==
LOC: HO.HMGCLDS 15:05
PROVIDERS: Absent Provider Student in an Organized Health Care Education/Training Program; PCP Internal Medicine; Visit Provider Internal Medicine
DX: E44.0 Moderate protein-calorie malnutrition (principal); D69.6 Thrombocytopenia, unspecified; D64.9 Anemia, unspecified
CPT/HCPCS: 36415; 80053; 82607; 82746; 83540; 83735; 85027

== ENCOUNTER → 2020-05-27 14:10 | Outpatient (BNVA) | payer OTHER, SELFPAY | PROVIDERS: PCP Internal Medicine; Visit Provider Surgery | DX: S00.05XA Superficial foreign body of scalp, initial encounter (principal) | CPT/HCPCS: 99202 ==

== ENCOUNTER 2022-08-08 09:00 | Outpatient (REF) | payer OTHER, SELFPAY ==
[2022-08-08 11:22] LABS: MANUAL DIFF FLAG NO
[2022-08-08 11:36] LABS: Basophils Absolute Auto 0.1 X10*3/uL (0.0-0.2); Basophils Percent Auto 0.3 % (0-2); Eosinophils Percent Auto 0.2 % (0-4); Hematocrit 39.4 % (37.0-47.0); Hemoglobin 12.7 g/dl (12.0-16.0); Imm Gran Abs Auto 0.12 X10*3/uL (0.00-0.03); Imm Gran Pct Auto 0.8 % (0.0-0.4); Lymphocytes Percent Auto 6.6 % (20-40); Mean Corpuscular HGB Conc 32.2 g/dl (31.0-35.0); Mean Corpuscular Volume 96.1 fL (80.0-98.0); Monocytes Absolute Auto 0.7 X10*3/uL (0.1-1.2); Monocytes Percent Auto 4.8 % (2-11); Neutrophils Absolute Auto 13.1 x10*3/uL (2.0-8.3); Neutrophils Percent Auto 87.3 % (45-73); Platelet Count 113 X10*3/uL (160-400); Red Cell Distribution Width 15.7 % (11.0-16.0); White Blood Count 15.1 X10*3/uL (4.8-10.8)
[2022-08-08 13:02] LABS: Alanine Aminotransferase 20 U/L (0-31); Albumin Level 3.7 g/dL (3.5-5.0); Alkaline Phosphatase 165 U/L (39-117); Anion Gap 19 (12-20); Aspartate Amino Transferase 93 U/L (5-31); Bilirubin Total 1.4 mg/dL (0.0-1.0); Blood Urea Nitrogen 7 mg/dL (9-16); Calcium 8.4 mg/dL (8.4-10.2); Carbon Dioxide 20 mmol/L (22-29); Chloride 101 mmol/L (96-108); Cholesterol 198 mg/dL; Estimated Glomerular Filt Rate > 60; Glucose Fasting 103 mg/dL (60-99); HDL Cholesterol 104 mg/dL; Iron 168 mcg/dL (30-160); LDL Cholesterol Calculated 73 mg/dl; Magnesium 1.8 mg/dL (1.6-2.6); Percent Iron Saturation 50 % (15-50); Potassium 4.4 mmol/L (3.3-5.1); Sodium 136 mmol/L (135-145); Total Iron Binding Capacity 339 mcg/dL (228-428); Total Protein 7.7 g/dL (6.5-8.0); Triglycerides 109 mg/dL; Unsaturated Iron Binding 171 ug/dL
== END 2022-08-08 09:01 | disposition home or self-care (01) ==
LOC: HO.HMGCLDS 09:00
PROVIDERS: PCP Internal Medicine; Visit Provider Internal Medicine
DX: E61.1 Iron deficiency (principal); F32.9 Major depressive disorder, single episode, unspecified
CPT/HCPCS: 36415; 80053; 80061; 83540; 83735; 85025

== ENCOUNTER 2023-05-01 13:48 | Outpatient (AMB) | payer OTHER, SELFPAY ==
--- NOTE | 2023-05-01 13:49 | MHC.PC.OV ---
Vital Signs 05/01/23 13:50 Height 5 ft 7.5 in Weight 250 lb BMI 38.6 BP 112/76 Blood Pressure Location Lt brachial Position Sitting Pulse 73 Pulse Source Pulse Oximeter Pulse Oximetry (%) 97 Oxygen Delivery Method Room Air Intake Visit Reasons: Followup meds Intake Note: Pt is here today for a complex follow up. Pt needs a refill on her medications. Allergies cyclobenzaprine [From Flexeril] Allergy (Unknown, Verified 05/01/23 13:51) Anxiety latex Allergy (Unknown, Verified 05/01/23 13:51) Skin bubbles prednisone [PREDNISONE] Allergy (Unknown, Verified 05/01/23 13:51) Angioedema Medication List - Last Reconciled 05/01/23 by Chantale Chairez MD acyclovir 200 mg PO TID PRN bupropion HCl 300 mg PO QAM bupropion HCl 150 mg PO QAM calcium carbonate (Chidi-Gest Antacid) 200 mg PO BID clonidine HCl 0.1 mg PO TID PRN ergocalciferol (vitamin D2) (Vitamin D2) 1,250 mcg PO MO@0900 ferrous sulfate 325 mg PO DAILY folic acid 1 mg PO DAILY hydroxyzine HCl 50 mg PO TID PRN lurasidone (Latuda) 60 mg PO DAILY magnesium oxide 400 mg PO BIDPC mecobalamin (vitamin B12) (B12 Active) 1,000 mcg PO DAILY metoprolol tartrate 12.5 mg (1/2 x 25 mg) PO BID ondansetron HCl 4 mg PO Q8H PRN potassium chloride ER 40 mEq (2 x 20 mEq) PO DAILY venlafaxine ER 75 mg PO DAILY venlafaxine ER 150 mg PO QAM Tobacco use date assessed: 05/01/23 Dental Screening Dental Screen Date: 05/01/23 Did you have a dental visit in the last 12 months?: Yes Did you have a dental problem in the last 6 months where you did not have access to dental care?: No Was dental information given to patient?: Patient has dentist HPI Followup meds HPI Details Pt presents for f/u. Chronic depression anxiety stable on current medications and patient is established with psychiatrist and counselor. [facility] Medical History (Updated 05/01/23 @ 15:22 by Chantale Chairez MD) Depression Iron deficiency Low magnesium level Hypokalemia Anemia Moderate protein malnutrition Thrombocytopenia Anemia Diarrhea Hypertension Clostridioides difficile diarrhea Malabsorption Ventral hernia Adrenal gland disease Narcolepsy Heart murmur Asthma Anxiety and depression Knee pain Foreign body Surgical History History of intestinal surgery Family History Father Unknown family medical history Mother Emphysema, unspecified Mental health disorder Son No problems noted. Social History Household Members: Significant Other and Friend(s) [facility] Do you presently have visiting nurse or other home services: No Alcohol intake: current Alcohol intake frequency: holidays/special occasions only Alcohol type: wine Patient Tobacco Use Status: Never used Tobacco e-Cigarette/Vaping Use: Never Used service: No Current occupational status: disabled Cognitive needs: No Hearing needs: No Vision needs: Yes Questionnaire PHQ-9 Over the last 2 weeks, how often have you been bothered by any of the following problems? 1. Little interest or pleasure in doing things: not at all 2. Feeling down, depressed, or hopeless: more than half the days 3. Trouble falling or staying asleep, or sleeping too much: more than half the days 4. Feeling tired or having little energy: several days 5. Poor appetite or overeating: not at all 6. Feeling bad about yourself - or that you are a failure or have let yourself or your family down: not at all 7. Trouble concentrating on things, such as reading the newspaper or watching television: not at all 8. Moving or speaking so slowly that other people could have noticed. Or the opposite - being so fidgety or restless that you have been moving around a lot more than usual: not at all 9. Thoughts that you would be better off or of hurting yourself in some way: not at all Total score: 5 Depression Screening Interpretation: Negative Depression Screening Done: Yes Source: Developed by Drs. Yovani Alejandra, Vanessa Price, Julien Vail and colleagues, with an educational blu from [employer]. Thrive Questionnaire Date Thrive assessed: 05/01/23 I am a: Patient What is your living situation today?: I do not have a steady places to live Within the past 12 months, did the food you bought not last and you didn't have the money to get more?: Sometimes True Within the past 12 months, did you worry whether your food would run out before you got money to buy more?: Sometimes True Do you have trouble paying for medicines?: No Do you have trouble getting transportation to medical appointments?: No Do you have trouble paying your heating and electricity bill?: No Do you have trouble taking care of your child, family member or friend?: No Do you have trouble with day-to-day activities such as bathing, preparing meals, shopping, managing finances, etc.?: No Are you currently unemployed and looking for a job?: No Are you interested in more education?: No THRIVE Score: 3 AUDIT C Alcohol Use Questionnaire (AUDIT-C) 1. How often do you have a drink containing alcohol?: Monthly or less 2. How many drinks containing alcohol do you have on a typical day when you are drinking?: 1 or 2 3. How often do you have six or more drinks on one occasion?: Never Total Score: 1 ANJELICA-7 AMB Questionnaire ANJELICA-7 Date ANJELICA - 7 assessed: 05/01/23 Feeling nervous, anxious, or on edge: 2 = More than half the days Not being able to stop or control worryin = Several days Worrying too much about different things: 1 = Several days Trouble relaxin = More than half the days Being so restless that it is hard to sit still: 2 = More than half the days Becoming easily annoyed or irritable: 2 = More than half the days Feeling afraid as if something awful might happen: 0 = Not at all Total ANJELICA-7 score (0-4 normal; 5-9 mild; 10-14 moderate; 15-21 severe): 10 Source: Developed by Drs. Yovani Alejandra, Vanessa Price, Julien Vail and colleagues, with an educational blu from [employer]. Review of Systems Const All systems reviewed & are unremarkable except as noted in HPI and below Reports no additional complaints Eyes Reports no additional complaints ENT Reports no additional complaints Card Reports no additional complaints Resp Reports no additional complaints GI Reports no additional complaints Reports no additional complaints Physical exam (Primary Care) Vital Signs: Last Vital Signs Pulse 73 05/01/23 13:50 BP 112/76 05/01/23 13:50 Pulse Ox 97 05/01/23 13:50 Oxygen Delivery Method Room Air 05/01/23 13:50 BMI result Body Mass Index 38.6 Tobacco/Smoking Status: Tobacco use Status Tobacco use date assessed 05/01/23 05/01/23 13:56 Patient Tobacco Use Status Never used Tobacco 05/01/23 13:56 e-Cigarette/Vaping Use Never Used 05/01/23 13:50 Depression Screening Interpretation: Negative Thrive Assessment: Date of Thrive Assessment Date Thrive assessed 10/27/21 05/01/23 13:50 Const General: no acute distress HENMT Head: Yes normal to inspection Eyes General: appearance normal, both eyes and all related structures Neck Neck: Yes supple Resp Effort & Inspection: normal respiratory effort Auscultation: clear to auscultation bilaterally Cardio Rhythm: regular rhythm Heart sounds: S1 normal heart sound present and S2 normal heart sound present GI Inspection: Yes normal to inspection Palpation (GI): Soft to palpation Percussion: Yes normal to percussion Auscultation: normal bowel sounds Assessment and Plan Assessment & Plan (1) Annual physical exam: Code(s): Z00.00 - Encounter for general adult medical examination without abnormal findings Plan: Well-balanced diet regular physical activity discussed with the patient. Mammogram will be scheduled patient will continue current supplements including vitamin-D potassium magnesium folic acid and will return for fasting blood work. (2) Iron deficiency: Code(s): E61.1 - Iron deficiency Plan: Check CBC and iron count (3) Anemia: Code(s): D64.9 - Anemia, unspecified (4) Vitamin D deficiency: Code(s): E55.9 - Vitamin D deficiency, unspecified Plan: Check vitamin-D (5) Anxiety and depression: Comment: active with [facility] Code(s): F41.9 - Anxiety disorder, unspecified; F32.9 - Major depressive disorder, single episode, unspecified Plan: Follow-up with Psychiatry Orders: Orders Lipid Panel Today D64.9 - Anemia, unspecified, E61.1 - Iron deficiency, Z00.00 - Encounter for general adult medical examination without abnormal findings MM screening mammo BI Today Z12.31 - Encounter for screening mammogram for malignant neoplasm of breast Comprehensive [place]. Panel Fast Today D64.9 - Anemia, unspecified, E61.1 - Iron deficiency, Z00.00 - Encounter for general adult medical examination without abnormal findings Complete Blood Count Auto Diff Today D64.9 - Anemia, unspecified, E61.1 - Iron deficiency, Z00.00 - Encounter for general adult medical examination without abnormal findings IRON PROFILE Today D64.9 - Anemia, unspecified, E61.1 - Iron deficiency, Z00.00 - Encounter for general adult medical examination without abnormal findings Vitamin B12 Today D64.9 - Anemia, unspecified, E61.1 - Iron deficiency, Z00.00 - Encounter for general adult medical examination without abnormal findings Vitamin D 25-OH Total Today E55.9 - Vitamin D deficiency, unspecified Magnesium Today E87.6 - Hypokalemia Medications: Refilled magnesium oxide 400 mg PO BIDPC 180 tabs 3RF R79.0 - Abnormal level of blood mineral potassium chloride ER 40 mEq (2 x 20 mEq) PO DAILY 180 tabs 3RF calcium carbonate (Chidi-Gest Antacid) 200 mg PO BID 180 tabs 3RF ergocalciferol (vitamin D2) (Vitamin D2) 1,250 mcg PO MO@0900 14 caps 0RF folic acid 1 mg PO DAILY 90 tabs 3RF metoprolol tartrate 12.5 mg (1/2 x 25 mg) PO BID 90 tabs 3RF Discontinued mecobalamin (vitamin B12) (B12 Active) Discontinued Reason: Doctor's Order 1,000 mcg PO DAILY 90 tabs 3RF ondansetron HCl Discontinued Reason: Doctor's Order 4 mg PO Q8H PRN 60 tabs 0RF for nausea/vomiting acyclovir Discontinued Reason: Doctor's Order 200 mg PO TID PRN 90 caps 0RF Outbreak Coding Level of Care Code Est Pt Level 4 (08034) Diagnoses Annual physical exam Z00.00 Iron deficiency E61.1 Anemia D64.9 Vitamin D deficiency E55.9 Anxiety and depression F41.9; F32.9
[2023-05-01 13:50] VITALS: BP 112/76; PULSE 73; O2SAT 97; BMI 38.6
== END 2023-05-01 15:22 | disposition home or self-care (01) ==
PROVIDERS: PCP Internal Medicine; Visit Provider Internal Medicine
DX: Z00.00 Encounter for general adult medical examination without abnormal findings (principal); E61.1 Iron deficiency; D64.9 Anemia, unspecified; E55.9 Vitamin D deficiency, unspecified; F41.9 Anxiety disorder, unspecified; F32.9 Major depressive disorder, single episode, unspecified
CPT/HCPCS: 99214

== ENCOUNTER 2023-05-25 08:14 | Outpatient (REF) | payer OTHER, SELFPAY ==
--- NOTE | ~2023-05-25 | MM_ITS ---
EXAMINATION: MM SCREENING DIGITAL BREAST TOMOSYNTHESIS, BILATERAL CLINICAL INFORMATION: Screening. Asymptomatic. COMPARISON: Mammography: This study is compared with the most recent previous mammogram from 2017. There are no interval examinations. TECHNIQUE: Digital breast tomosynthesis is performed in both the craniocaudal and mediolateral oblique views along with computer-aided detection (CAD). Synthesized 2D images are generated from the tomosynthesis. FINDINGS: The breasts are almost entirely fatty (ACR BI-RADS breast composition Category a). There are no significant masses, abnormal calcifications, or other abnormalities. MM/MM tomosynthesis screening BI IMPRESSION: No mammographic evidence of malignancy. ASSESSMENT: BI-RADS BI-RADS 1 - Negative RECOMMENDATION: Routine annual mammography screening. 1 year F/U This examination should not preclude the clinical evaluation of a suspicious palpable abnormality. This patient's information was entered into a reminder system with a target due date for their next mammogram.
== END 2023-05-25 08:15 | disposition home or self-care (01) ==
LOC: HO.MAMMO 08:14
PROVIDERS: PCP Internal Medicine; Visit Provider Internal Medicine
DX: Z12.31 Encounter for screening mammogram for malignant neoplasm of breast (principal)
CPT/HCPCS: 77063; 77067

== ENCOUNTER → 2023-05-25 08:15 | Outpatient (BNV) | payer OTHER, SELFPAY | PROVIDERS: PCP Internal Medicine; Visit Provider Radiology Diagnostic Radiology | DX: Z12.31 Encounter for screening mammogram for malignant neoplasm of breast (principal) | CPT/HCPCS: 77063; 77067 ==

== ENCOUNTER 2024-06-05 12:44 | Outpatient (AMB) | payer OTHER, SELFPAY ==
[2024-06-05 13:23] VITALS: BP 110/70; PULSE 83; RESP 20; TEMP 36.9; O2SAT 95; BMI 36.3
--- NOTE | 2024-06-05 13:23 | A.OFFPC_ITS ---
Vital Signs 06/05/24 13:23 Height 5 ft 7 in Weight 232 lb BMI 36.3 BP 110/70 Blood Pressure Location Lt brachial Position Sitting Respiration 20 Pulse 83 Pulse Source Pulse Oximeter Temp 98.4 F Temp Source Oral Pulse Oximetry (%) 95 Oxygen Delivery Method Room Air Intake Visit Reasons: Annual PE Intake Note: Pt is here today for PE. Allergies cyclobenzaprine [From Flexeril] Allergy (Unknown, Verified 06/05/24 13:27) Anxiety latex Allergy (Unknown, Verified 06/05/24 13:27) Skin bubbles prednisone [PREDNISONE] Allergy (Unknown, Verified 06/05/24 13:27) Angioedema Medication List - Last Reconciled 06/05/24 by Chantale Chairez MD albuterol sulfate 90 mcg/actuation (Ventolin HFA) 2 puffs inhalation Q6H PRN bupropion HCl XL 300 mg PO QAM bupropion HCl XL 150 mg PO QAM calcium carbonate (Chidi-Gest Antacid) 200 mg PO BID clonidine HCl 0.1 mg PO TID PRN ergocalciferol (vitamin D2) (Vitamin D2) 1,250 mcg PO MO@0900 ferrous sulfate 325 mg PO DAILY dhwzqzqlfzu-nzmntxqdm-slainiqe 200-62.5-25 mcg (Trelegy Ellipta) 1 inh inhalation DAILY folic acid 1 mg PO DAILY hydroxyzine HCl 50 mg PO TID PRN lurasidone (Latuda) 60 mg PO DAILY magnesium oxide 400 mg PO BIDPC metoprolol tartrate 12.5 mg (1/2 x 25 mg) PO BID potassium chloride ER 40 mEq (2 x 20 mEq) PO DAILY venlafaxine ER 75 mg PO DAILY venlafaxine ER 150 mg PO QAM Tobacco use date assessed: 06/05/24 Dental Screening Dental Screen Date: 06/05/24 Did you have a dental visit in the last 12 months?: Yes Did you have a dental problem in the last 6 months where you did not have access to dental care?: No Was dental information given to patient?: Patient has dentist HPI Annual PE HPI Details Patient presents for physical. COPD hypertension controlled on current medications. Patient is established with psychiatrist for chronic depression and anxiety stable on current medications. Patient had a colonoscopy and EGD last year at [facility] and is established with social human services assistants at [facility]. PFSH Medical History (Updated 06/05/24 @ 13:53 by Chantale Chairez MD) Depression Iron deficiency Low magnesium level Hypokalemia Anemia Anemia Diarrhea Hypertension Clostridioides difficile diarrhea Malabsorption Ventral hernia Narcolepsy Anxiety and depression Knee pain Surgical History History of intestinal surgery Family History Father Unknown family medical history Mother Emphysema, unspecified Mental health disorder Son No problems noted. Social History Household Members: Significant Other and Friend(s) Housing: Condominium Do you presently have visiting nurse or other home services: No Alcohol intake: current Alcohol intake frequency: holidays/special occasions only Alcohol type: wine Patient Tobacco Use Status: Never used Tobacco e-Cigarette/Vaping Use: Never Used service: No Current occupational status: disabled Cognitive needs: No Hearing needs: No Vision needs: Yes Questionnaire Thrive Questionnaire Date Thrive assessed: 06/05/24 AUDIT C Alcohol Use Questionnaire (AUDIT-C) 1. How often do you have a drink containing alcohol?: Monthly or less 2. How many drinks containing alcohol do you have on a typical day when you are drinking?: 1 or 2 3. How often do you have six or more drinks on one occasion?: Never Total Score: 1 ANJELICA-7 AMB Questionnaire ANJELICA-7 Date ANJELICA - 7 assessed: 05/01/23 Source: Developed by Drs. Yovani Alejandra, Vanessa Price, Julien Vail and colleagues, with an educational blu from [employer]. Review of Systems Const All systems reviewed & are unremarkable except as noted in HPI and below Eyes Reports no additional complaints ENT Reports no additional complaints Card Reports no additional complaints Resp Reports no additional complaints GI Reports no additional complaints Reports no additional complaints Physical exam (Primary Care) Vital Signs: Last Vital Signs Temp 98.4 F 06/05/24 13:23 Pulse 83 06/05/24 13:23 Resp 20 06/05/24 13:23 BP 110/70 06/05/24 13:23 Pulse Ox 95 06/05/24 13:23 Oxygen Delivery Method Room Air 06/05/24 13:23 BMI result Body Mass Index 36.3 Tobacco/Smoking Status: Tobacco use Status Tobacco use date assessed 06/05/24 06/05/24 13:34 Patient Tobacco Use Status Never used Tobacco 06/05/24 13:34 e-Cigarette/Vaping Use Never Used 06/05/24 13:25 Thrive Assessment: Date of Thrive Assessment Date Thrive assessed 06/05/24 06/05/24 13:34 Const General: no acute distress HENMT Head: Yes normal to inspection Face and sinus: Yes normal facial exam Throat: Yes posterior oropharynx normal Neck Neck: Yes supple Resp Effort & Inspection: normal respiratory effort Auscultation: clear to auscultation bilaterally Cardio Rhythm: regular rhythm Heart sounds: S1 normal heart sound present and S2 normal heart sound present GI Inspection: Yes normal to inspection Palpation (GI): Soft to palpation Percussion: Yes normal to percussion Auscultation: normal bowel sounds Coding Level of Care Code Est Pt Prev Care 40-64y(53551) Diagnoses Hyperglycemia R73.9 Anxiety and depression F41.9; F32.9 Anemia D64.9 Annual physical exam Z00.00 Asthma J45.909 Assessment & Plan Assessment & Plan (1) Hyperglycemia: Code(s): R73.9 - Hyperglycemia, unspecified Category: Medical Plan: ADA diet, increase physical activity weight loss discussed with the patient check A1c today (2) Anxiety and depression: Comment: active with [facility] meds Code(s): F41.9 - Anxiety disorder, unspecified; F32.9 - Major depressive disorder, single episode, unspecified Category: Medical Plan: Follow-up with the Psychiatry (3) Anemia: Code(s): D64.9 - Anemia, unspecified Category: Medical Plan: Check CBC and iron count (4) Annual physical exam: Code(s): Z00.00 - Encounter for general adult medical examination without abnormal findings Category: Medical Plan: Well-balanced diet regular physical activity weight loss discussed with the patient she had negative colonoscopy and EGD last year at [facility] and is established with social human services assistants (5) Asthma: Code(s): J45.909 - Unspecified asthma, uncomplicated Category: Medical Plan: Controlled on Trelegy and albuterol p.r.n. Orders: Orders Comprehensive Met. Panel Today D64.9 - Anemia, unspecified, F32.9 - Major depressive disorder, single episode, unspecified, F41.9 - Anxiety disorder, unspecified, R73.9 - Hyperglycemia, unspecified Complete Blood Count Auto Diff Today D64.9 - Anemia, unspecified, F32.9 - Major depressive disorder, single episode, unspecified, F41.9 - Anxiety disorder, unspecified, R73.9 - Hyperglycemia, unspecified TSH reflex Free T4 Today D64.9 - Anemia, unspecified, F32.9 - Major depressive disorder, single episode, unspecified, F41.9 - Anxiety disorder, unspecified, R73.9 - Hyperglycemia, unspecified Hemoglobin A1c Today D64.9 - Anemia, unspecified, F32.9 - Major depressive disorder, single episode, unspecified, F41.9 - Anxiety disorder, unspecified, R73.9 - Hyperglycemia, unspecified IRON PROFILE Today E61.1 - Iron deficiency
--- OUTSIDE RECORDS SUMMARY | 2024-06-05 15:21 | XMS_ITS | Encounter Summary ---
Author Organization [facility] Address [address] [place] [address] Phone Care Team Providers Care Junk Removal Specialist Name Role Phone Alba Rhodes CNP Unavailable Johnny Nguyen MD Unavailable Kellen Harris MD Unavailable Taran Randolph MD Unavailable [facility] Unavailable Viki Pablo MD Unavailable Dora Brody MD Unavailable Mason Sepulveda MD Unavailable Rosalba Jenkins MD Unavailable [phone] Dejah Ware MD Unavailable Lavell Patricia MD Unavailable Charmaine Hernandez NP Unavailable [phone] Chantale Chairez MD Primary Care Provider Reason for Referral * Occupational Therapy (Routine) - Closed Specialty Diagnoses / Procedures Referred By Leeanne vázquez Referred To Contact Occupational Therapy Diagnoses ORIF left distal radious fracture splint System, Provider Not In, [facility] [address] [address] [facility] [address] [place] [address] Referral ID Status Reason Start Date Expiration Date Visits Re quested Visits Authorized [id number] Closed 02/04/2018 02/04/2019 1 1 Encounter Details Date Type Department Care Team (Latest Contact Info) Description 02/04/2018 Transcribe Orders [facility] [address] [place] [address] Douglas Membreno MD [address] [place] [address] [address] [place] [address] Encounter for rehabilitation (Primary Dx) Social History Tobacco Use Types Packs/Day Years Used Date Smoking Tobacco: Former Smokeless Tobacco: Never Alcohol Use Standard Drinks/Week Comments No 0 (1 standard drink = 0.6 oz pur e alcohol) Sex and Gender Information Value Date Recorded Sex Assigned at Female 11/24/2017 2:24 PM EDT Gender Identity Female 11/24/2017 2:24 PM EDT Sexual Orientation Not on file documented as of this encounter Plan of Treatment Upcoming Encounters Date Type Department Care Team (Late st Contact Info) Description 08/06/2024 3:15 PM EDT Office Visit [facility] [address] [address] Loy Ag MD 22 [facility] [address] [place] [address] [email or web address] Scheduled Referrals Name Type Priority Associated Diagnoses Orde r Schedule Ambulatory referral to [facility] Occupational Therapy Outpatient Referral Routine Encounter for rehabilitation Ordered: 02/04/2018 documented as of this encounter Visit Diagnoses Diagnosis Encounter for rehabilitation- Primary documented in this encounter Care Teams Junk Removal Specialist Relationship Specialty Start Date End Date Chantale Chairez MD [facility] [place] [address] PCP - General Internal Medicine 01/31/18 Alba Rhodes CNP [address] [facility] [place] [address] Historical LMR Provider 01/15/17 04/09/21 Johnny Nguyen MD [address] [place] [address] Historical LMR Provider 01/15/17 04/09/21 Kellen Harris MD [address] [place] [address] [address] [place] [address] Historical LMR Provider 01/15/17 2 Taran Randolph MD [address] [facility] [address] [place] [address] Historical LMR Provider 01/15/17 2 Ivy Brand FNP [address], [address] [place] [address] [email or web address] Historical LMR Provider 01/15/17 04/09/21 Viki Pablo MD [address], [address] [place] [address] Historical LMR Provider 01/15/17 04/09/21 Dora Brody MD [address] [facility], 2nd [place] [address] [email or web address] Historical LMR Provider 01/15/17 Mason Sepulveda MD [address] [place] [address], [address] [place] [address] Historical LMR Provider 01/15/17 Rosalba Jenkins MD [address], [place] [address] Historical LMR Provider 01/15/17 2 Dejah Ware MD [address] [place] [address] Historical LMR Provider 01/15/17 2 Lavell Patricia MD [address] [place] [id number] Historical LMR Provider 01/15/17 04/09/21 Charmaine Hernandez NP [address] [place] [address] Historical LMR Provider 01/15/17 04/09/21 documented as of this encounter Additional Source Comments The information contained in this document represents components of the legal health record. It is not the complete legal health record.[facility]
--- OUTSIDE RECORDS SUMMARY | 2024-06-05 15:21 | XMS_ITS | Encounter Summary ---
Author Organization [facility] Address [address] [place] [address] Phone Care Team Providers Care Lining Strap Closer Name Role Phone Alba Rhodes CNP Unavailable Johnny Nguyen MD Unavailable Kellen Harris MD Unavailable [phone] Taran Randolph MD Unavailable [facility] Unavailable Viki Pablo MD Unavailable Dora Brody MD Unavailable Mason Sepulveda MD Unavailable Rosalba Jenkins MD Unavailable Dejah Ware MD Unavailable Lavell Patricia MD Unavailable Charmaine Hernandez NP Unavailable Chantale Chairez MD Primary Care Provider Encounter Details Date Type Department Care Team (Late st Contact Info) Description 02/27/2018 Transcribe Orders [facility] Specimen Processing [address] [place] [address] Johnny Nguyen MD 38 [facility] [address], [address] [place] [address] [email or web address] Muscle weakness (generalized) (Primary Dx); Major depressive disorder, recurrent episode, moderate; Mild depressed bipolar I disorder Social History Tobacco Use Types Packs/Day Years [...] Description 08/06/2024 3:15 PM EDT Office Visit [facility] [address] [place] [address] Loy Ag MD 22 [facility], [facility] [address] [place] [address] [email or web address] documented as of this encounter Results * (ABNORMAL) Basic metabolic panel (02/27/2018 6:51 AM EST) SODIUM 142 133 - 146 mmol/L [facility] CHLORIDE 101 96 - 108 mmol/L [facility] POTASSIUM 4.3 3.3 - 5.1 mmol/L [facility] CO2 27 21 - 35 mmol/L [facility] BUN 10 6 - 19 mg/dL [facility] CREATININE 0.60 0.5 - 1.5 mg/dL [facility] GLUCOSE 103(H) 70 - 99 mg/dL [facility] CALCIUM 9.0 8.4 - 10.3 mg/dL [facility] EGFR 107 >59 mL/min/1.7 3m2 [facility] Comment:If patient is black, multiply result by 1.159. Estimated glomerular filtration rate calculated using the CKD-EPI equation. ANION GAP 18 10 - 20 mmol/L [facility] Blood 02/27/2018 6:51 AM EST 02/27/2018 9:52 AM EST Johnny Nguyen MD LAB BLOOD ORDERABLES Performing Organization Address [facility]/ZIP Co de Phone Number [address] [address] * (ABNORMAL) CBC (02/27/2018 6:51 AM EST) WBC 7.26 3.40 - 11.20 K/uL [facility] RBC 4.35 3.80 - 4.80 M/uL [facility] HGB 11.6(L) 12.0 - 15.0 g/dL [facility] HCT 37.7 36.0 - 46.0 % [facility] PLT 256 130 - 400 K/uL [facility] MCV 86.7 79.0 - 98.0 fL [facility] MCH 26.7(L) 27.0 - 34.8 pg [facility] MCHC 30.8(L) 31.5 - 36.0 g/dL [facility] RDW 20.2(H) 10.8 - 14.6 % [facility] MPV 10.8 9.4 - 12.4 fl [facility] NRBC 0.00 0.00 /100 WBCs [facility] ABSOLUTE NRBC 0.00 0.00 K/uL [facility] Blood 02/27/2018 6:51 AM EST 02/27/2018 9:52 AM EST Johnny Nguyen MD LAB BLOOD ORDERABLES Performing Organization Address [facility] Co de Phone Number [address] [address] documented in this encounter Visit Diagnoses Diagnosis Muscle weakness (generalized)- Primary Major depressive disorder, recurrent episode, moderate Mild depressed bipolar I disorder Bipolar I disorder, most recent episode (or current) depressed, mild documented in this encounter Care Teams Lining Strap Closer Relationship Specialty Start Date End Date Chantale Chairez MD [address] [place] [address] PCP - General Internal Medicine 01/31/18 Alba Rhodes CNP 38 [facility], [address], [address] [place] [address] Historical LMR Provider 01/15/17 04/09/21 Johnny Nguyen MD 38 [facility] [address], [address] [place] [address] Historical LMR Provider 01/15/17 04/09/21 Kellen Harris MD [address] [place] [address] [address] [place] [address] Historical LMR Provider 01/15/17 2 Taran Randolph MD 22 [facility] [address] [place] [address] Historical LMR Provider 01/15/17 2 Ivy Brand FNP 38 [facility]. 204, [address] [place] [address] [email or web address] Historical LMR Provider 01/15/17 04/09/21 Viki Pablo MD 38 [facility]. 204, [address] [place] [address] Historical LMR Provider 01/15/17 04/09/21 Dora Brody MD 15 [facility], 2nd [place] [address] Historical LMR Provider 01/15/17 Mason Sepulveda MD [address] [place] [address] [address] [place] [address] [email or web address] Historical LMR Provider 01/15/17 Rosalba Jenkins MD [address], [place] [address] Historical LMR Provider 01/15/17 2 Dejah Ware MD [address] [place] [address] Historical LMR Provider 01/15/17 2 Lavell Patricia MD 22 [facility] [address] [place] [address] Historical LMR Provider 01/15/17 04/09/21 Charmaine Hernandez NP [address] [place] [address] Historical LMR Provider 01/15/17 04/09/21 documented as of this encounter Additional Source Comments The information contained in this document represents components of the legal health record. It is not the complete legal health record.[facility]
--- OUTSIDE RECORDS SUMMARY | 2024-06-05 15:21 | XMS_ITS | Clinical Summary ---
Author Organization [employer] Address [address] [place] [address] 7 [place] [address] Care Team Providers Care Mine Surveyor Name Role Phone PcpRaymond Unassigned Primary Care Provider U navailable Allergies Active Allergy Reactions Criticality Noted Date Comments Cyclobenzaprine Unknown,Shortness of breath High 06/17/2007 Back spasms Other reaction(s): sharp painful feeling Latex Unknown,Rash Low 03/31/2006 Skin bubbles and gets red Prednisone Unknown,Anaphylaxis High 02/19/2006 Throat and chest tightening Medications zafirlukast (Accolate) 20 MG tablet 09/04/2022 Active venlafaxine XR (Effexor XR) 150 MG 24 hr capsule 07/31/2022 Active venlafaxine XR (Effexor XR) 75 MG 24 hr capsule 08/11/2022 Active thiamine (Vitamin B-1) 100 MG tablet Take 100 mg by mouth in the morning. Active potassium chloride CR (Klor-Con M20) 20 MEQ ER tablet 09/07/2022 Active ondansetron (Zofran) 4 MG tablet 04/26/2022 Active Multiple Vitamin (Multi-Vitamin) tablet Take 1 tablet by mouth in the morning. Active metoprolol tartrate (Lopressor) 25 MG tablet 09/07/2022 Active magnesium oxide (Mag-Ox) 400 (240 Mg) MG tablet 09/07/2022 Active Latuda 80 MG tablet 12/01/2021 Active LORazepam (Ativan) 1 MG tablet Take 1 mg by mouth if needed in the morning and at bedtime. Active Lactobacillus (Acidophilus) capsule Take 1 capsule by mouth 2 times daily. Active hydrOXYzine HCl (Atarax) 50 MG tablet 06/01/2022 Active folic acid (Folvite) 1 MG tablet 09/07/2022 Active Trelegy Ellipta 200-62.5-25 MCG/ACT aerosol powder 06/27/2022 Active FeroSul 325 (65 Fe) MG tablet 09/07/2022 Activ e ergocalciferol (Vitamin D2) 1.25 MG (76975 UT) capsule 09/07/2022 Active emtricitabine-t enofovir DF (Truvada) 200-300 MG tablet Take 1 tablet by mouth. 03/14/2021 Active dolutegravir (Tivicay) 50 MG tablet Take 50 mg by mouth. 03/14/2021 Active cloNIDine (Catapres) 0.1 MG tablet 06/01/2022 Active Chidi-Gest Antacid 500 MG chewable tablet 08/11/2022 Act amber buPROPion XL (Wellbutrin XL) 150 MG 24 hr tablet 09/07/2022 Active Ventolin HFA 108 (90 Base) MCG/ACT inhaler 09/07/2022 Act amber acyclovir (Zovirax) 200 MG capsule 09/07/2022 Active acetaminophen (Tylenol) 325 MG tablet Take 650 mg by mouth every 6 (six) hours if needed. Active FOLIC ACID PO Take by mouth. 10/18/2020 Active FERROUS SULFATE ER PO Take 325 mg by mouth. 10/18/2020 Active Social History Tobacco Use Types Packs/Day Years Used Date Smoking Tobacco: Never Assessed Comments Unknown Sex and Gender Information Value Date Recorded Sex Assigned at Female 04/11/2022 9:02 AM EST Legal Sex Female 5:36 PM EDT Gender Identity Female 04/11/2022 9:02 AM EST Sexual Orientation Choose not to disclose 2022 8:49 AM EST Plan of Treatment Upcoming Encounters Date Type Department Care Team (Late st Contact Info) Description 06/06/2024 8:15 AM EST Office Visit [facility] DENTAL [address] [place] [address] Pritesh Rodriguez Jr., DMD [address] [place] [address] 06/13/2024 8:15 AM EDT Office Visit [facility] DENTAL [address] [place] [address] Pritesh Rodriguez Jr., DMD [address] [place] [address] 06/20/2024 8:15 AM EDT Office Visit [facility] DENTAL [address] [place] [address] Pritesh Rodriguez Jr., DMD [address] [place] [address] 06/27/2024 8:15 AM EDT Office Visit [facility] DENTAL [address] [place] [address] Pritesh Rodriguez Jr., DMD [address] [place] [address] Health Maintenance Due Date Last Done Comments CT Colonography 1968 Colonoscopy 1968 Colorectal Cancer Screening 1968 Depression Screening 1968 FIT DNA/Cologuard 1968 FIT 1968 FOBT 1968 HIV Screening 1968 Lipid Panel 1968 SDOH Screening 1968 Sigmoidoscopy 1968 Alcohol/Substance Use Screening 1980 Tobacco Screening 1980 Hepatitis C Screening 1986 DTaP/Tdap/Td Vaccines (1 - Tdap) 10/03/1987 Hepatitis B Vaccines (1 of 3 - 19+ 3-dose series) 10/03/1987 Pneumococcal Vaccine: 50+ Years (1 of 2 - PCV) 10/03/1987 Pap Smear 1989 Cervical Cancer Screening 1998 HPV/Cotest 1998 Mammogram 2008 Dental Oral Exam 07/05/2018 01/03/2018 Zoster Vaccines (1 of 2) 2018 Dental Prophylaxis 06/29/2021 12/29/2020, 03/10/2019 Dental X-Ray: Bitewings 12/30/2021 12/30/19 21, 01/03/2018, 12/18/2017 COVID-19 Vaccine (3 - 2023-2 5 season) 2023 09/01/2020, 07/30/2020 Influenza Vaccine (#1) 2023 Dental X-Ray: Full Mouth 12/31/2023 021, 01/03/2018 RSV Patients and Patients Aged 60 years or older (1 - 1-dose 75+ series) 10/03/2043 HIB Vaccines Aged Out No longer eligi ble based on patient's age to complete this topic HPV Vaccines Aged Out No longer eligi ble based on patient's age to complete this topic Hepatitis A Vaccines Aged Out No long er eligible based on patient's age to complete this topic IPV Vaccines Aged Out No longer eligi ble based on patient's age to complete this topic Meningococcal Vaccine Aged Out No anne lili eligible based on patient's age to complete this topic RSV under 20 months Aged Out No longe r eligible based on patient's age to complete this topic Rotavirus Vaccines Aged Out No longer eligible based on patient's age to complete this topic Procedures Procedure Name Priority Date/Time Associated Diagnosis Comments PROPHYLAXIS - ADULT Routine 12/29/2020 1 2:00 AM EDT INTRAORAL - COMPLETE SERIES OF RADIOGRAPHIC IMAGES Routine 12/29/2020 12:00 AM EDT COMPREHENSIVE ORAL EVALUATION - NEW OR ESTABLISHED PATIENT Routine 01/03/2018 12:00 AM EDT from Last 3 Months or Most Recently Relevant to Health Maintenance Insurance #[address] [place] [address] DENTAL - [facility] Care Teams Mine Surveyor Relationship Specialty Start Date End Date Raymond Reddy Unassigned PCP - General Family Medicine 07/31/22
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
--- OUTSIDE RECORDS SUMMARY | 2024-06-05 15:21 | XMS_ITS | Encounter Summary ---
Author Organization [facility] Address [address] [place] [address] Phone Care Team Providers Care Lean Manufacturing Engineer Name Role Phone Mason Sepulveda MD Unavailable Chantale Chairez MD Primary Care Provider [phone] Encounter Details Date Type Department Care Team (Late st Contact Info) Description 05/23/2024 [facility] [address] [place] [address] Franci Tracy 30 [place] [address] [email or web address] Social History Tobacco Use Types Packs/Day Years Used Date Smoking Tobacco: Former Alcohol Use Standard Drinks/Week Comments No 0 [...] on file documented as of this encounter Progress Notes * Franci Tracy - 05/23/2024 2:11 PM EST Tried calling pt to schedule an overdue appointment for a medication refill of trellegy inhaler un able to leave message voicemail was full. documented in this encounter Plan of Treatment Upcoming Encounters Date Type Department Care Team (Late st Contact Info) Description 08/06/2024 3:15 PM EDT Office Visit [facility] [address] [place] [address] Loy Ag MD [address] [place] [address] [email or web address] documented as of this encounter Visit Diagnoses Not on filedocumented in this encounter Care Teams Lean Manufacturing Engineer Relationship Specialty Start Date End Date Chantale Chairez MD [facility] [place] [address] PCP - General Internal Medicine 01/31/18 Mason Sepulveda MD [address] [place] [address] [email or web address] Historical LMR Provider 01/15/17 documented as of this encounter Additional Source Comments The information contained in this document represents components of the legal health record. It is not the complete legal health record.[facility]
== END 2024-06-05 13:56 | disposition home or self-care (01) ==
LOC: HO.HMCC 12:44
PROVIDERS: PCP Internal Medicine; Visit Provider Internal Medicine
DX: R73.9 Hyperglycemia, unspecified (principal); F41.9 Anxiety disorder, unspecified; F32.9 Major depressive disorder, single episode, unspecified; D64.9 Anemia, unspecified; Z00.00 Encounter for general adult medical examination without abnormal findings; J45.909 Unspecified asthma, uncomplicated

== ENCOUNTER 2024-06-05 12:44 | Outpatient (REF) | payer OTHER, SELFPAY ==
[2024-06-05 16:33] LABS: MANUAL DIFF FLAG NO
[2024-06-05 16:43] LABS: Basophils Absolute Auto 0.1 X10*3/uL (0.0-0.2); Basophils Percent Auto 0.5 % (0-2); Eosinophils Absolute Auto 0.2 X10*3/uL (0.0-0.4); Eosinophils Percent Auto 1.7 % (0-4); Hematocrit 40.2 % (37.0-47.0); Hemoglobin 12.9 g/dl (12.0-16.0); Imm Gran Abs Auto 0.04 X10*3/uL (0.00-0.03); Imm Gran Pct Auto 0.4 % (0.0-0.4); Lymphocytes Absolute Auto 2.6 X10*3/uL (1.2-4.9); Lymphocytes Percent Auto 27.8 % (20-40); Mean Corpuscular HGB Conc 32.1 g/dl (31.0-35.0); Mean Corpuscular Hemoglobin 30.1 pg (27.0-33.0); Mean Corpuscular Volume 93.9 fL (80.0-98.0); Monocytes Absolute Auto 0.7 X10*3/uL (0.1-1.2); Monocytes Percent Auto 7.3 % (2-11); Neutrophils Absolute Auto 5.7 x10*3/uL (2.0-8.3); Neutrophils Percent Auto 62.3 % (45-73); Platelet Count 305 X10*3/uL (160-400); Red Blood Count 4.28 X10*6/uL (4.20-5.50); Red Cell Distribution Width 15.2 % (11.0-16.0); White Blood Count 9.2 X10*3/uL (4.8-10.8)
--- OUTSIDE RECORDS SUMMARY | 2024-06-05 16:48 | XMS_ITS | Encounter Summary ---
Author Organization [facility] Address [address] [place] [address] Phone Care Team Providers Care Firer Helper Name Role Phone Alba Rhodes CNP Unavailable Johnny Nguyen MD Unavailable Kellen Harris MD Unavailable Taran Randolph MD Unavailable [email or web address] Unavailable Viki Pablo MD Unavailable Dora Brody MD Unavailable Mason Sepulveda MD Unavailable Rosalba Jenkins MD Unavailable [phone] Dejah Ware MD Unavailable Lavell Patricia MD Unavailable Charmaine Hernandez NP Unavailable [phone] Chantale Chairez MD Primary Care Provider Reason for Referral * Occupational Therapy (Routine) - Closed Specialty Diagnoses / Procedures Referred By Leeanne vázquez Referred To Contact Occupational Therapy Diagnoses ORIF left distal radious fracture splint System, Provider Not In, [facility] [address] [address] [facility] Parent [address] [place] [address] Referral ID Status Reason Start Date Expiration Date Visits Re quested Visits Authorized [id number] Closed 02/04/2018 02/04/2019 1 1 Encounter Details Date Type Department Care Team (Latest Contact Info) Description 02/04/2018 Transcribe Orders [facility] [address] [place] [address] Douglas Membreno MD [address] [place] [address] [address] [place] [address] Encounter for rehabilitation (Primary Dx) Social History [...] Description 08/06/2024 3:15 PM EDT Office Visit [facility] [address] [address] Loy Ag MD 22 [facility] 301 [place] [address] [email or web address] Scheduled Referrals Name Type Priority Associated Diagnoses Orde r Schedule Ambulatory referral to [facility] Occupational Therapy Outpatient Referral Routine Encounter for rehabilitation Ordered: 02/04/2018 documented as of this encounter Visit Diagnoses Diagnosis Encounter for rehabilitation- Primary documented in this encounter Care Teams Firer Helper Relationship Specialty Start Date End Date Chantale Chairez MD [facility] [place] [address] PCP - General Internal Medicine 01/31/18 Alba Rhodes CNP 38 [facility] [place] [address] Historical LMR Provider 01/15/17 04/09/21 Johnny Nguyen MD [address] [place] [address] Historical LMR Provider 01/15/17 04/09/21 Kellen Harris MD [address] [place] [address] [address] [place] [address] Historical LMR Provider 01/15/17 2 Taran Randolph MD [address] [facility] [address] [place] [address] Historical LMR Provider 01/15/17 2 Ivy Brand FNP [address] [place] [address] [email or web address] Historical LMR Provider 01/15/17 04/09/21 Viki Pablo MD [address] [place] [address] Historical LMR Provider 01/15/17 04/09/21 Dora Brody MD [address] [facility], 2nd [place] [address] [email or web address] Historical LMR Provider 01/15/17 Mason Sepulveda MD [address] [place] [address], [address] [place] [address] Historical LMR Provider 01/15/17 Rosalba Jenkins MD [address], [place] [address] Historical LMR Provider 01/15/17 2 Dejah Ware MD [address] [place] [address] Historical LMR Provider 01/15/17 2 Lavell Patricia MD [address] [place] [address] Historical LMR Provider 01/15/17 04/09/21 Charmaine Hernandez NP [address] [place] [address] Historical LMR Provider 01/15/17 04/09/21 documented as of this encounter Additional Source Comments The information contained in this document represents components of the legal health record. It is not the complete legal health record.[facility]
--- OUTSIDE RECORDS SUMMARY | 2024-06-05 16:48 | XMS_ITS | Clinical Summary ---
Author Organization [facility] Address [address] [place] [address] Phone Care Team Providers Care Chimney Mechanic Name Role Phone Mason Sepulveda MD Unavailable Chantale Chairez MD Primary Care Provider [phone] Allergies Active Allergy Reactions Criticality Noted Date [...] Active ferrous sulfate 325 mg (65 mg ione iron) tablet Take 325 mg by mouth [...] reliable or a flap. She was not solutions delivery consultant or around therefore recommended transfer [facility]. I spoke with Dr. Grace at [facility] regarding pt transfer whom declined. He stated [...] and lorazepam for anxiety per pt and [facility] med list. -Continue hydroxyzine -lorazepam PRN Asthma [...] Type Department Care Team Description 05/23/2024 Telephone [facility] [address] [place] [address] Dr Hicks [address] [place] [address] Franci Tracy from Last 3 Months Immunizations [...] Description 08/06/2024 3:15 PM EDT Office Visit [facility] [address] [place] [address] Loy Ag MD [address] [place] [address], [facility] [address] [place] [address] [email or web address] Health Maintenance Due Date Last Done Comments [...] EST) SODIUM 139 133 - 146 mmol/L [facility] CHLORIDE 103 96 - 108 mmol/L [facility] POTASSIUM 3.9 3.3 - 5.1 mmol/L [facility] CO2 25 21 - 35 mmol/L [facility] BUN 9 6 - 19 mg/dL [facility] CREATININE 0.50 0.5 - 1.5 mg/dL [facility] GLUCOSE 98 70 - 99 mg/dL [facility] CALCIUM 8.8 8.4 - 10.3 mg/dL [facility] EGFR 114 >59 mL/min/1.7 3m2 [facility] Comment:If patient is black, multiply result by 1.159. Estimated glomerular filtration rate calculated using the CKD-EPI equation. ANION GAP 15 10 - 20 mmol/L [facility] Blood 03/06/2018 6:42 AM EST 03/06/2018 11:35 AM EST Johnny Nguyen MD LAB BLOOD ORDERABLES [address] [address] from Last 3 Months or Most Recently Relevant to Health Maintenance Advance Directives For more information, please contact: [phone] (9AM - 5PM [facility], Sunday-Sunday) * Full Code (Confirmed) (Latest Code Status on File) Date Activated Date Inactivated Comments 02/01/2018 5:08 PM 02/05/2018 9:26 PM Question Answer Comments Code Status Confirmed With: Patient Care Teams Chimney Mechanic Relationship Specialty Start Date End Date Chantale Chairez MD [address] [place] [address] PCP - General Internal Medicine 01/31/18 Mason Sepulveda MD [address] [place] [address] [email or web address] Historical LMR Provider 01/15/17 Additional Source Comments The information contained in this document represents components of the legal health record. It is not the complete legal health record.[facility]
--- OUTSIDE RECORDS SUMMARY | 2024-06-05 16:48 | XMS_ITS | Encounter Summary ---
Author Organization [facility] Address [address] [place] [address] Phone Care Team Providers Care Bioinformaticist Name Role Phone Mason Sepluveda MD Unavailable Chantale Chairez MD Primary Care Provider [phone] Encounter Details Date Type Department Care Team (Late st Contact Info) Description 05/23/2024 [facility] [address] [place] [address] Franci Tracy [address] [place] [address] [email or web address] Social History Tobacco Use Types Packs/Day Years [...] Description 08/06/2024 3:15 PM EDT Office Visit [facility] [address] [place] [address] Loy Ag MD [address] [place] [address] [email or web address] documented as of this encounter Visit Diagnoses Not on filedocumented in this encounter Care Teams Bioinformaticist Relationship Specialty Start Date End Date Chantale Chairez MD [facility] [address] PCP - General Internal Medicine 01/31/18 Mason Sepulveda MD [address] [place] [address] [email or web address] Historical LMR Provider 01/15/17 documented as of this encounter Additional Source Comments The information contained in this document represents components of the legal health record. It is not the complete legal health record.[facility]
--- OUTSIDE RECORDS SUMMARY | 2024-06-05 16:48 | XMS_ITS | Encounter Summary ---
Author Organization [facility] Address [address] [place] [address] Phone Care Team Providers Care Database Report Writer Name Role Phone Alba Rhodes CNP Unavailable Johnny Nguyen MD Unavailable Kellen Harris MD Unavailable [phone] Taran Randolph MD Unavailable [facility] Unavailable Viki Pablo MD Unavailable Dora Brody MD Unavailable Mason Sepulveda MD Unavailable Rosalba Jenkins MD Unavailable [phone] Dejah Ware MD Unavailable Lavell Patricia MD Unavailable Charmaine Hernandez NP Unavailable [phone] Chantale Chairez MD Primary Care Provider [phone] Encounter Details Date Type Department Care Team (Late st Contact Info) Description 02/27/2018 Transcribe Orders [facility] Specimen Processing [address] [place] [address] Johnny Nguyen MD 38 [facility] [address] [place] [address] [email or web address] Muscle weakness (generalized) (Primary Dx); Major depressive [...] Description 08/06/2024 3:15 PM EDT Office Visit [facility] [address] [place] [address] Loy Ag MD 22 [facility] [address] [place] [address] [email or web address] documented as of this encounter Results * (ABNORMAL) Basic metabolic panel (02/27/2018 6:51 AM EST) SODIUM 142 133 - 146 mmol/L [facility] CHLORIDE 101 96 - 108 mmol/L [facility] POTASSIUM 4.3 3.3 - 5.1 mmol/L [facility] CO2 27 21 - 35 mmol/L [facility] BUN 10 6 - 19 mg/dL [facility] CREATININE 0.60 0.5 - 1.5 mg/dL [facility] GLUCOSE 103(H) 70 - 99 mg/dL [facility] CALCIUM 9.0 8.4 - 10.3 mg/dL [facility] EGFR 107 >59 mL/min/1.7 3m2 [facility] Comment:If patient is black, multiply result by 1.159. Estimated glomerular filtration rate calculated using the CKD-EPI equation. ANION GAP 18 10 - 20 mmol/L [facility] Blood 02/27/2018 6:51 AM EST 02/27/2018 9:52 AM EST Johnny Nguyen MD LAB BLOOD ORDERABLES Performing Organization Address [facility]/ZIP Co de Phone Number [address] [address] * (ABNORMAL) CBC (02/27/2018 6:51 AM EST) WBC 7.26 3.40 - 11.20 K/uL [facility] RBC 4.35 3.80 - 4.80 M/uL [facility] HGB 11.6(L) 12.0 - 15.0 g/dL [facility] HCT 37.7 36.0 - 46.0 % [facility] PLT 256 130 - 400 K/uL [facility] MCV 86.7 79.0 - 98.0 fL [facility] MCH 26.7(L) 27.0 - 34.8 pg [facility] MCHC 30.8(L) 31.5 - 36.0 g/dL [facility] RDW 20.2(H) 10.8 - 14.6 % [facility] MPV 10.8 9.4 - 12.4 fl [facility] NRBC 0.00 0.00 /100 WBCs [facility] ABSOLUTE NRBC 0.00 0.00 K/uL [facility] Blood 02/27/2018 6:51 AM EST 02/27/2018 9:52 AM EST Johnny Nguyen MD LAB BLOOD ORDERABLES Performing Organization Address [facility] Co de Phone Number [address] [address] documented in this encounter Visit Diagnoses Diagnosis Muscle weakness (generalized)- Primary Major depressive disorder, recurrent episode, moderate Mild depressed bipolar I disorder Bipolar I disorder, most recent episode (or current) depressed, mild documented in this encounter Care Teams Database Report Writer Relationship Specialty Start Date End Date Chantale Chairez MD [address] [place] [address] PCP - General Internal Medicine 01/31/18 Alba Rhodes CNP 38 [facility], [address] [place] [address] Historical LMR Provider 01/15/17 04/09/21 Johnny Nguyen MD 38 [facility] [address] [place] [address] Historical LMR Provider 01/15/17 04/09/21 Kellen Harris MD [address] [place] [address] 3 [place] [address] Historical LMR Provider 01/15/17 2 Taran Randolph MD 22 [facility] [address] [place] [address] Historical LMR Provider 01/15/17 2 Ivy Brand FNP 38 [facility], [address] [place] [address] [email or web address] Historical LMR Provider 01/15/17 04/09/21 Viki Pablo MD 38 [facility], [address] [place] [address] Historical LMR Provider 01/15/17 04/09/21 Dora Brody MD 15 [facility], 2nd [place] [address] Historical LMR Provider 01/15/17 Mason Sepulveda MD [address] [place] [address] [address] [place] [address] [email or web address] Historical LMR Provider 01/15/17 Rosalba Jenkins MD [address] [address] Historical LMR Provider 01/15/17 2 Dejah Ware MD [address] [place] [address] Historical LMR Provider 01/15/17 2 Lavell Patricia MD 22 [facility] [address] [place] [address] Historical LMR Provider 01/15/17 04/09/21 Charmaine Hernandez NP [address] [place] [address] Historical LMR Provider 01/15/17 04/09/21 documented as of this encounter Additional Source Comments The information contained in this document represents components of the legal health record. It is not the complete legal health record.[facility]
--- OUTSIDE RECORDS SUMMARY | 2024-06-05 16:48 | XMS_ITS | Clinical Summary ---
Author Organization [employer] Address [address] [place] [address] 7 [place] [address] Care Team Providers Care Heavy Equipment Technician Name Role Phone PcpRaymond Unassigned Primary Care [...] Activ e ergocalciferol (Vitamin D2) 1.25 MG (57783 UT) capsule 09/07/2022 Active emtricitabine-t enofovir DF [...] Description 06/06/2024 8:15 AM EST Office Visit [facility] [address] [place] [address] Pritesh Rodriguez Jr., DMD [address] [place] [address] 06/13/2024 8:15 AM EDT Office Visit [facility] [address] [place] [address] Pritesh Rodriguez Jr., DMD [address] [place] [address] 06/20/2024 8:15 AM EDT Office Visit [facility] [address] [place] [address] Pritesh Rodriguez Jr., DMD [address] [place] [address] 06/27/2024 8:15 AM EDT Office Visit [facility] [address] [place] [address] Pritesh Rodriguez Jr., DMD [address] [place] [address] Health Maintenance Due Date Last Done Comments [...] Recently Relevant to Health Maintenance Insurance #3 [place] [address] D[facility]AL - [facility] Care Teams Heavy Equipment Technician Relationship Specialty Start Date End Date Raymond Reddy Unassigned PCP - General Family Medicine 07/31/22
[2024-06-05 16:49] LABS: Estimated Average Glucose 103 mg/dL; Hemoglobin A1C 110.9007 umol/L; Hemoglobin A1c % 5.2 % (<6.0)
[2024-06-05 17:13] LABS: Alanine Aminotransferase 54 U/L (0-31); Albumin Level 3.8 g/dL (3.5-5.0); Anion Gap 15 (12-20); Aspartate Amino Transferase 43 U/L (5-31); Bilirubin Total 0.2 mg/dL (0.0-1.0); Blood Urea Nitrogen 16 mg/dL (9-16); Carbon Dioxide 26 mmol/L (22-29); Chloride 105 mmol/L (96-108); Estimated Glomerular Filt Rate > 60; Glucose Random 81 mg/dL (60-115); Potassium 5.4 mmol/L (3.3-5.1); Sodium 141 mmol/L (135-145); Total Protein 7.8 g/dL (6.5-8.0)
[2024-06-05 17:22] LABS: Alkaline Phosphatase 109 U/L (39-117)
[2024-06-05 17:28] LABS: TSH reflex Free T4 2.86 uIU/mL (0.32-4.0)
== END 2024-06-05 12:45 | disposition home or self-care (01) ==
LOC: HO.HMGCLDS 12:44
PROVIDERS: PCP Internal Medicine; Visit Provider Internal Medicine
DX: Z00.00 Encounter for general adult medical examination without abnormal findings (principal); R73.9 Hyperglycemia, unspecified; F41.9 Anxiety disorder, unspecified; F32.9 Major depressive disorder, single episode, unspecified; D64.9 Anemia, unspecified; J45.909 Unspecified asthma, uncomplicated
CPT/HCPCS: 36415; 80053; 83036; 84443; 85025; 99396

== ENCOUNTER 2024-08-12 10:46 | Outpatient (AMB) | payer OTHER, SELFPAY ==
[2024-08-12 10:54] VITALS: BP 116/74; PULSE 83; TEMP 36.7; O2SAT 97; BMI 36.3
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
--- OUTSIDE RECORDS SUMMARY | 2024-08-12 12:10 | XMS_ITS | Encounter Summary ---
Author Organization [facility] Address [address] [place] [address] Phone Care Team Providers Care Nurse Infection Control Name Role Phone Alba Rhodes JANITORIAL ASSISTANT Unavailable [phone] Johnny Nguyen MD Unavailable Kellen Harris MD Unavailable Taran Randolph MD [facility]available [facility] LO[facility] C[facility] Unavailable Viki Pablo MD Unavailable Dora Brody MD Unavailable Mason Sepulveda MD Unavailable Rosalba Jenkins MD Unavailable [phone] Dejah Ware MD Unavailable Lavell Patricia MD Unavailable Charmaine Hernandez NP Unavailable [phone] Chantale Chairez MD Primary Care Provider [phone] Encounter Details Date Type Department Care Team (Late st Contact Info) Description 02/27/2018 Transcribe Orders [facility] Specimen Processing [address] [place] [address] Johnny Nguyen MD 38 [facility] [address] [place] [address] [email or web address] Muscle weakness (generalized) (Primary Dx); Major depressive disorder, recurrent episode, moderate; Mild depressed bipolar I disorder Social History Tobacco Use Types Packs/Day Years Used Date Smoking Tobacco: Former Smokeless Tobacco: Never Alcohol Use Standard Drinks/Week Comments No 0 (1 standard drink = 0.6 oz pur e alcohol) Comments No Sex and Gender Information Value Date Recorded Sex Assigned at Female 11/24/2017 2:24 PM EDT Legal Sex Female 7:34 PM EST Gender Identity Female 11/24/2017 2:24 PM EDT Sexual Orientation Not on file documented as of this encounter Plan of Treatment Upcoming Encounters Date Type Department Care Team (Late st Contact Info) Description 02/09/2025 1:20 PM EST Office Visit [facility] [address] [facility] 3rd Floor, [address] [place] [address] Yovani Oliver MD, MS 22 [facility], [address] [place] [address] [email or web address] documented as of this encounter Results * (ABNORMAL) Basic metabolic panel (02/27/2018 6:51 AM EST) SODIUM 142 133 - 146 mmol/L [facility] CHLORIDE 101 96 - 108 mmol/L [facility] POTASSIUM 4.3 3.3 - 5.1 mmol/L [facility] CO2 27 21 - 35 mmol/L [facility] BUN 10 6 - 19 mg/dL [facility] CREATININE 0.60 0.5 - 1.5 mg/dL [facility] GLUCOSE 103(H) 70 - 99 mg/dL [facility] CALCIUM 9.0 8.4 - 10.3 mg/dL [facility] EGFR 107 >59 mL/min/1.7 3m2 [facility] Comment:If patient is black, multiply result by 1.159. Estimated glomerular filtration rate calculated using the CKD-EPI equation. ANION GAP 18 10 - 20 mmol/L [facility] Blood 02/27/2018 6:51 AM EST 02/27/2018 9:52 AM EST us Johnny Nguyen MD LAB BLOOD ORDERABLES Final Resul t Performing Organization Address [facility] Co de Phone Number [address] [address] * (ABNORMAL) CBC (02/27/2018 6:51 AM EST) WBC 7.26 3.40 - 11.20 K/uL [facility] RBC 4.35 3.80 - 4.80 M/uL [facility] HGB 11.6(L) 12.0 - 15.0 g/dL [facility] HCT 37.7 36.0 - 46.0 % [facility] PLT 256 130 - 400 K/uL [facility] MCV 86.7 79.0 - 98.0 fL [facility] MCH 26.7(L) 27.0 - 34.8 pg [facility] MCHC 30.8(L) 31.5 - 36.0 g/dL [facility] RDW 20.2(H) 10.8 - 14.6 % [facility] MPV 10.8 9.4 - 12.4 [facility] NRBC 0.00 0.00 /100 WBCs [facility] ABSOLUTE NRBC 0.00 0.00 K/uL [facility] Blood 02/27/2018 6:51 AM EST 02/27/2018 9:52 AM EST us Johnny Nguyen MD LAB BLOOD ORDERABLES Final Resul t Performing Organization Address City/[facility]/ZIP Co de Phone Number [address] [address] documented in this encounter Visit Diagnoses Diagnosis Muscle weakness (generalized)- Primary Major depressive disorder, recurrent episode, moderate Mild depressed bipolar I disorder Bipolar I disorder, most recent episode (or current) depressed, mild documented in this encounter Care Teams Nurse Infection Control Relationship Specialty Start Date End Date Chantale Chairez MD [facility] [place] [address] PCP - General Internal Medicine 01/31/18 Alba Rhodes JANITORIAL ASSISTANT [address] [place] [address] [email or web address] Historical LMR Provider 01/15/17 Johnny Nguyen MD 38 [facility], [address] [place] [address] Historical LMR Provider 01/15/17 04/09/21 Kellen Harris MD [address] [place] [address] Historical LMR Provider 01/15/17 2 Taran Randolph MD [address] [address] Historical LMR Provider 01/15/17 2 Ivy Brand FNP 38 [facility]. [address], [address] [place] [address] Historical LMR Provider 01/15/17 04/09/21 Viki Pablo MD 38 [facility] [address], [address] [place] [address] Historical LMR Provider 01/15/17 04/09/21 Dora Brody MD [address] [place] [address], 2nd [place] [address] Historical LMR Provider 01/15/17 Mason Sepulveda MD [address] [place] [address] [address] [place] [address] Historical LMR Provider 01/15/17 Rosalba Jenkins MD [address], [place] [address] Historical LMR Provider 01/15/17 2 Dejah Ware MD [address] [place] [address] Historical LMR Provider 01/15/17 2 Lavell Patricia MD [address] [place] [address] [address] [place] [address] Historical LMR Provider 01/15/17 04/09/21 Charmaine Hernandez NP 26 [facility] [address] [place] [address] Historical LMR Provider 01/15/17 04/09/21 documented as of this encounter Additional Source Comments The information contained in this document represents components of the legal health record. It is not the complete legal health record.[facility]
--- OUTSIDE RECORDS SUMMARY | 2024-08-12 12:10 | XMS_ITS | Clinical Summary ---
Author Organization [facility] Address [address] [place] [address] Phone Care Team Providers Care Dining Room Manager Name Role Phone Mason Sepulveda MD Unavailable Chantale Chairez MD Primary Care Provider [phone] Allergies Active Allergy Reactions Criticality Noted Date Comments Cyclobenzaprine Unknown 06/17/2007 Back spasms Latex Unknown 03/31/2006 Skin bubbles and gets red Prednisone Unknown 02/19/2006 Throat and chest tightening Medications multivitamin per tablet Take 1 tablet by [...] 1 mg by mouth daily. Active calcium carbonate-vitam in D3 500-100 mg-unit Chew Take 1 tablet [...] Active ferrous sulfate 325 mg (65 mg [place] iron) tablet Take 325 mg by mouth daily with breakfast. Active acyclovir (ZOVIRAX) 200 MG capsule 11/14/19 Active BEAU-GEST ANTACID 200 mg calcium (500 mg) chewable tablet 11/14/19 Active VITAMIN D2 1,250 mcg (50,000 unit) capsule 11/15/19 Active magnesium oxide (MAG-OX) 400 mg (241.3 mg elemental) tablet 11/14/19 Active metoprolol tartrate (LOPRESSOR) 25 MG tablet 11/14/19 Active potassium chloride SA (KLOR-CON M) 20 MEQ ER tablet 11/14/19 Active zafirlukast (ACCOLATE) 20 MG tabletIndicatio ns:Asthma Take 1 tablet (20 mg total) by mouth 2 (two) times a day. 180 tablet 3 08/07/19 25 Active fluticasone-ume clidin-vilanter (TRELEGY ELLIPTA) 200-62.5-25 mcg inhalerIndicati ons:Asthma Inhale 1 puff into the lungs daily. 3 each 3 08/07/19 25 Active albuterol 90 mcg/actuation inhalerIndicati ons:Asthma INHALE 2 PUFFS BY MOUTH EVERY FOUR HOURS NEEDED FOR SHORTNESS OF BREATH 18 g 08/07/19 25 Active albuterol (ACCUNEB) 0.63 mg/3 mL nebulizer solution Take 3 mL (0.63 mg total) by nebulization every 4 (four) hours as needed for wheezing or shortness of breath/dyspnea. 180 mL 08/07/19 25 025 Active TRELEGY ELLIPTA 200-62.5-25 mcg inhalerIndicati ons:Asthma INHALE 1 PUFF BY MOUTH DAILY 3 each 3 04/12/19 23 025 Discontin ued(Reord er) zafirlukast (ACCOLATE) 20 MG tabletIndicatio ns:Asthma Take 1 tablet (20 mg total) by mouth 2 (two) times a day. 180 tablet 3 08/11/19 23 025 Discontin ued(Reord er) albuterol 90 mcg/actuation inhalerIndicati ons:Asthma INHALE 2 PUFFS BY MOUTH EVERY FOUR HOURS NEEDED FOR SHORTNESS OF BREATH 18 g 11 08/11/19 23 025 Discontin ued(Reord er) Active Problems Problem Noted Date Diagnosed Date [...] reliable or a flap. She was not automotive power electronics engineer or around therefore recommended transfer [facility]. I spoke with Dr. Grace at [facility] regarding pt transfer whom declined. He [...] and lorazepam for anxiety per pt and [facility] med list. -Continue hydroxyzine -lorazepam PRN [...] Encounters Date Type Department Care Team Description 08/06/2024 3:15 PM EDT Office Visit [facility] [address], [address] [place] [address] Loy Ag MD Moderate persistent asthma without complication (Primary Dx); Asthma 05/23/2024 Telephone [facility] [address], [address] [place] [address] Franci Tracy from Last 3 Months Immunizations Immunization Administration Dates Next Due Influenza, Unspecified Formulation [...] with a working camera? Not on file Comments No Sex and Gender Information Value Date Recorded Sex Assigned at Female 11/24/2017 2:24 PM EDT Legal Sex Female 7:34 PM EST Gender Identity Female 11/24/2017 2:24 PM EDT Sexual Orientation Not on file Last Filed Vital Signs Vital Sign Reading Time Taken Comments Blood Pressure 124/80 08/06/2024 3:18 PM EDT Pulse 84 08/06/2024 3:18 PM EDT Temperature 37 ??C (98.6 ??F) 02/05/2018 6:05 PM EST Respiratory Rate 18 02/05/2018 6:05 PM EST Oxygen Saturation 96% 08/06/2024 3:18 PM EDT Inhaled Oxygen Concentration - - Weight 124.6 kg (274 lb 9.6 oz) 018 11:24 AM EST Height 170.2 cm (5' 7 ) 08/06/2024 3:18 PM EDT Body Mass Index 43.01 02/01/2018 4:27 PM EDT Plan of Treatment Upcoming Encounters Date Type Department Care Team (Late st Contact Info) Description 02/09/2025 1:20 PM EST Office Visit [facility] [address], [address] [place], [place] [id number] Yovani Oliver MD, MS [facility] [address] [place] [address] [email or web address] Health Maintenance Due Date Last Done Comments DEPRESSION SCREENING 1980 SMOKING Hx and SMOKELESS TOBACCO SCREENING 1981 HEPATITIS C SCREENING 1986 HIV ONE-TIME SCREENING (18-65 YEARS) 1986 PNEUMOCOCCAL VACCINES (50+ years) (1 of 2 - PCV) 10/03/1987 PAP SMEAR 1989 MAMMOGRAM 2008 COLOGUARD 2013 COLONOSCOPY 2013 COLORECTAL CANCER SCREENING 2013 FIT TEST 2013 FOBT 2013 SIGMOIDOSCOPY 2013 VIRTUAL COLONOSCOPY 2013 ZOSTER VACCINES (1 of 2) 2018 POTASSIUM LEVEL 03/06/2019 03/06/2018, 02/01, 02/15/2018, Additional history exists LIPID PANEL 07/25/2020 07/26/2015 COVID-19 VACCINE ( season) 2023 07/30/2020 Adult Td,Tdap Booster 05/13/2024 05/13/2014 HEPATITIS A VACCINES Aged Out No long er eligible based on patient's age to complete this topic HIB VACCINES Aged Out No longer eligi ble based on patient's age to complete this topic MENINGOCOCCAL VACCINES (ACWY) Aged Out No longer eligible based on patient's age to complete this topic MENINGOCOCCAL VACCINES (B) Aged Out N o longer eligible based on patient's age to complete this topic Medical Devices Not on file Procedures Procedure Name Priority Date/Time Associated Diagnosis Comments BASIC METABOLIC PANEL Routine 03/06/2018 6:42 AM EST Hypertension, unspecified type from Last 3 Months or Most Recently Relevant to Health Maintenance Results * Basic metabolic panel (03/06/2018 6:42 AM EST) SODIUM 139 133 - 146 mmol/L [facility] CHLORIDE 103 96 - 108 mmol/L [facility] POTASSIUM 3.9 3.3 - 5.1 mmol/L [facility] CO2 25 21 - 35 mmol/L [facility] BUN 9 6 - 19 mg/dL [facility] CREATININE 0.50 0.5 - 1.5 mg/dL [facility] GLUCOSE 98 70 - 99 mg/dL [facility] CALCIUM 8.8 8.4 - 10.3 mg/dL [facility] EGFR 114 >59 mL/min/1.7 3m2 [facility] Comment:If patient is black, multiply result by 1.159. Estimated glomerular filtration rate calculated using the CKD-EPI equation. ANION GAP 15 10 - 20 mmol/L [facility] Blood 03/06/2018 6:42 AM EST 03/06/2018 11:35 AM EST us Johnny Nguyen MD LAB BLOOD ORDERABLES Final Resul t [facility] [address] [place] [address] from Last 3 Months or Most Recently Relevant to Health Maintenance Insurance [facility] ONE CARE MEDICARE REPLACEMENT [facility] MEDICARE REPLACEMENT [facility] MEDICARE [facility]PLACEMENT [facility] MEDICARE REPLACEMENT [facility] MEDICARE REPLACEMENT [facility] MEDICARE REPLACEMENT [facility] MEDICARE REPLACEMENT [facility] C[facility] MEDICARE REPLACEMENT [facility] MEDICARE REPLACEMENT Advance Directives For more information, please contact: [phone] (9AM - 5PM [facility], Sunday-Sunday) * Full Code (Confirmed) (Latest Code Status on File) Date Activated Date Inactivated Comments 02/01/2018 5:08 PM 02/05/2018 9:26 PM Question Answer Comments Code Status Confirmed With: Patient Care Teams Dining Room Manager Relationship Specialty Start Date End Date Chantale Chairez MD [address] [place] [address] PCP - General Internal Medicine 01/31/18 Mason Sepulveda MD [address] [place] [address] [email or web address] Historical LMR Provider 01/15/17 Additional Source Comments The information contained in this document represents components of the legal health record. It is not the complete legal health record.[facility]
--- OUTSIDE RECORDS SUMMARY | 2024-08-12 12:11 | XMS_ITS | Clinical Summary ---
Author Organization [facility] Address [address] [facility] [address] [place] [address] Care Team Providers Care Adjuster Electrical Contacts Name Role Phone PcpRaymond Unassigned Primary Care [...] Activ e ergocalciferol (Vitamin D2) 1.25 MG (11543 UT) capsule 09/07/2022 Active emtricitabine-t enofovir DF [...] Take 325 mg by mouth. 10/18/2020 Active Encounters Date Type Department Care Team Description 06/20/2024 8:15 AM EDT Office Visit [facility] [address] [place] [address] Pritesh Rodriguez Jr., ERIC 06/13/2024 8:15 AM EDT Office Visit [facility] [address] [place] [address] Pritesh Rodriguez Jr., ERIC 06/13/2024 Travel 06/06/2024 12:00 PM EST Office Visit [facility] [address] [place] [address] Pritesh Rodriguez Jr., ERIC 05/30/2024 12:00 PM EST Office Visit [facility] [address] [place] [address] Pritesh Rodriguez Jr., DMD from Last 3 Months Social History Tobacco Use Types Packs/Day Years Used Date Smoking Tobacco: Never Assessed Comments Unknown Sex and Gender Information Value Date Recorded Sex Assigned at Female 04/11/2022 9:02 AM EST Legal Sex Female 5:36 PM EDT Gender Identity Female 04/11/2022 9:02 AM EST Sexual Orientation Choose not to disclose 2022 8:49 AM EST Plan of Treatment Health Maintenance Due Date Last Done Comments [...] 2) 2018 Dental Prophylaxis 06/29/2021 12/29/2020, 03/10/2019 COVID-19 Vaccine ( season) 2023 09/01/2020, 07/30/2020 Influenza Vaccine (#1) 2023 Dental X-Ray: Bitewings 05/31/2025 05/30/19 25, 12/29/2020, 01/03/2018, Additional history exists Dental X-Ray: Full Mouth 05/31/2027 025, 12/29/2020, 01/03/2018 RSV Patients and Patients Aged 60 [...] Procedure Name Priority Date/Time Associated Diagnosis Comments NO CHARGE EXAM AND CONSULTATION Routine 06/20/2024 8:15 AM EDT CASE PRESENTATION, DETAILED AND EXTENSIVE TREATMENT PLANNING Routine 06/13/2024 8:15 AM EDT 28 EXTRACTION, ERUPTED TOOTH OR EXPOSED ROOT (ELEVATION/FORCEPS REMOVAL) Routine 06/13/2024 8:15 AM EDT 29 EXTRACTION, ERUPTED TOOTH OR EXPOSED ROOT (ELEVATION/FORCEPS REMOVAL) Routine 06/13/2024 8:15 AM EDT 31 EXTRACTION, ERUPTED TOOTH OR EXPOSED ROOT (ELEVATION/FORCEPS REMOVAL) Routine 06/13/2024 8:15 AM EDT CASE PRESENTATION, DETAILED AND EXTENSIVE TREATMENT PLANNING Routine 06/06/2024 12:00 PM EST 10 EXTRACTION, ERUPTED TOOTH OR EXPOSED ROOT (ELEVATION/FORCEPS REMOVAL) Routine 06/06/2024 12:00 PM EST 9 EXTRACTION, ERUPTED TOOTH OR EXPOSED ROOT (ELEVATION/FORCEPS REMOVAL) Routine 06/06/2024 12:00 PM EST 8 EXTRACTION, ERUPTED TOOTH OR EXPOSED ROOT (ELEVATION/FORCEPS REMOVAL) Routine 06/06/2024 12:00 PM EST 7 EXTRACTION, ERUPTED TOOTH OR EXPOSED ROOT (ELEVATION/FORCEPS REMOVAL) Routine 06/06/2024 12:00 PM EST CASE PRESENTATION, DETAILED AND EXTENSIVE TREATMENT PLANNING Routine 05/30/2024 12:00 PM EST INTRAORAL - COMPLETE SERIES OF RADIOGRAPHIC IMAGES Routine 05/30/2024 12:00 PM EST PROPHYLAXIS - ADULT Routine 12/29/2020 1 2:00 AM EDT COMPREHENSIVE ORAL EVALUATION - NEW OR ESTABLISHED PATIENT Routine 01/03/2018 12:00 AM EDT from Last 3 Months or Most Recently Relevant to Health Maintenance [facility] [place] [id number] D[facility]AL - [facility] Care Teams Adjuster Electrical Contacts Relationship Specialty Start Date End Date Raymond Reddy Unassigned PCP - General Family Medicine 07/31/22
--- OUTSIDE RECORDS SUMMARY | 2024-08-12 12:11 | XMS_ITS | Encounter Summary ---
Author Organization [facility] Address [address] [place] [phone] Phone Care Team Providers Care Cd Mixer Name Role Phone Alba Rhodes STERILE PREPARATION TECHNICIAN Unavailable Johnny Nguyen MD Unavailable Kellen Harris MD Unavailable Taran Randolph MD [facility]available [facility] INTERNAL SALES ENGINEER Unavailable Viki Pablo MD Unavailable Dora Brody MD Unavailable Mason Sepulveda MD Unavailable Rosalba Jenkins MD Unavailable [phone] Dejah Ware MD Unavailable Lavell Patricia MD Unavailable Charmaine Hernandez NP Unavailable [phone] Chantale Chairez MD Primary Care Provider Reason for Referral * Occupational Therapy (Routine) - Closed Specialty Diagnoses / Procedures Referred By Leeanne vázquez Referred To Contact Occupational Therapy Diagnoses ORIF left distal radious fracture splint System, Provider Not In, PhD [id number] [place] [address] Phone: tel: Referral ID Status Reason Start Date Expiration Date Visits Re quested Visits Authorized [id number] Closed 02/04/2018 02/04/2019 1 1 Encounter Details Date Type Department Care Team (Latest Contact Info) Description 02/04/2018 Transcribe Orders [facility] [address] [place] [address] Douglas Membreno MD [address] [place] [address] [address] [place] [address] Encounter for rehabilitation (Primary Dx) Social History [...] Description 02/09/2025 1:20 PM EST Office Visit [facility] [address] [facility] 3rd Floor, [address] [place] [address] Yovani Oliver MD, MS [address] [facility], [address] [place] [phone] [email or web address] Scheduled Referrals Name Type Priority Associated Diagnoses Orde r Schedule Ambulatory referral to [facility] Occupational Therapy Outpatient Referral Routine Encounter for rehabilitation Ordered: 02/04/2018 documented as of this encounter Visit Diagnoses Diagnosis Encounter for rehabilitation- Primary documented in this encounter Care Teams Cd Mixer Relationship Specialty Start Date End Date Chantale Chairez MD [facility] [place] [address] PCP - General Internal Medicine 01/31/18 Alba Rhodes NP [address] [place] [address] [email or web address] Historical LMR Provider 01/15/17 Johnny gNuyen MD [address] [place] [address] Historical LMR Provider 01/15/17 04/09/21 Kellen Harris MD [address] [facility] [address] [place] [address] Historical LMR Provider 01/15/17 2 Taran Randolph MD [address] [facility] [address] [place] [address] Historical LMR Provider 01/15/17 2 Ivy Brand FNP [address] [facility], [address] [place] [address] [email or web address] Historical LMR Provider 01/15/17 04/09/21 Viki Pablo MD [address] [facility], [address] [place] [address] Historical LMR Provider 01/15/17 04/09/21 Dora Brody MD [address] [facility], 2nd [place] [address] Historical LMR Provider 01/15/17 Mason Sepulveda MD [address] [facility] [address] [place] [address] Historical LMR Provider 01/15/17 Rosalba Jenkins MD [address], [place] [address] Historical LMR Provider 01/15/17 2 Dejah Ware MD [address] [place] [address] Historical LMR Provider 01/15/17 2 Lavell Patricia MD [address] [place] [address] [address] [place] [address] Historical LMR Provider 01/15/17 04/09/21 Charmaine Hernandez NP [address] [facility] [address] [place] [address] Historical LMR Provider 01/15/17 04/09/21 documented as of this encounter Additional Source Comments The information contained in this document represents components of the legal health record. It is not the complete legal health record.[facility]
== END 2024-08-12 14:22 | disposition home or self-care (01) ==
PROVIDERS: PCP Internal Medicine; Visit Provider Internal Medicine
DX: S83.8X2A Sprain of other specified parts of left knee, initial encounter (principal)

== ENCOUNTER → 2024-08-12 10:46 | Outpatient (BNVA) | payer OTHER, SELFPAY | PROVIDERS: PCP Internal Medicine; Visit Provider Internal Medicine | DX: S83.8X2A Sprain of other specified parts of left knee, initial encounter (principal) | CPT/HCPCS: 99212 ==